=== PATIENT | female | born 1970 | race Caucasian/White ===

== ENCOUNTER 2017-08-23 20:30 | Emergency (ER) | payer SELFPAY ==
[2017-08-23 21:18] LABS: Urine Blood NEGATIVE (NEG); Urine Glucose 2+ (NEG); Urine Protein NEGATIVE (NEG); Urine Specific Gravity 1.015 (1.005-1.030); Urine pH 6.5 (5.0-7.0)
[2017-08-23 22:10] LABS: Absolute Lymphocytes (CBC) 2.2 K/uL (0.7-4.9); Absolute Monocytes 0.5 K/uL (0.1-1.3); Absolute Neutrophil 7.5 K/uL (1.8-8.0); Basophils % 0.7 % (0-1.3); Eosinophils % 1.5 % (0-4.4); Hematocrit 38.7 % (36.0-45.0); Lymphocytes % 20.8 % (15.3-44.8); MCH 29.3 pg (27.0-35.0); MPV 9.3 fL (7.6-11.3); Monocytes % 4.6 % (3.3-12.3); RBC Red Blood Cell Count 4.45 M/uL (3.86-4.86)
[2017-08-23 22:19] LABS: Bicarbonate 26 mEq/L (21-31); Glucose Level 260 mg/dL (65-120); Lipase 28 U/L (22-51); Potassium 3.6 mEq/L (3.6-5.0); Sodium Level 131 mEq/L (135-145)
[2017-08-23 22:20] LABS: Urine Bacteria <20 /HPF (<20); Urine Culture Reflex Order REFLEXED; Urine RBC <5 /HPF (NONE SEEN)
[2017-08-23 22:25] LABS: ALT/SGPT 22 IU/L (10-60); AST/SGOT 16 IU/L (10-42); Albumin 3.3 g/dL (3.2-5.5); Alkaline Phosphatase 72 IU/L (42-121); Amylase Level 44 U/L (28-100); BUN Blood Urea Nitrogen 14 mg/dL (6-20); Bilirubin Direct < 0.1 mg/dL (0-0.2); Bilirubin Total 0.2 mg/dL (0.3-1.2); Protein, Total 6.7 g/dL (6.0-8.3)
--- NOTE | 2017-08-24 01:05 | ER ---
Nurse's Notes [facility] Name: Madisyn Cat Age: 47 yrs Sex: Female : 1970 Arrival Date: 08/23/2017 Time: 20:31 Bed 13 Private MD: Diagnosis: Cystitis, unspecified with hematuria;Other and unspecified ovarian cysts Presentation: 08/23 20:37 Presenting complaint: Patient states: Right flank pain since yesterday with abdominal aj bloating. Patient reports cloudy urine. Transition of care: patient was not received from another setting of care. Onset of symptoms was August 22, 2017. Care prior to arrival: None. 20:37 Method Of Arrival: Ambulatory aj 20:37 Acuity: NIKKI 3 aj 21:00 Initial Sepsis Screen: Does the patient meet any 2 criteria? No. Patient's initial bs1 sepsis screen is negative. Does the patient have a suspected source of infection? No. Patient's initial sepsis screen is negative. Triage Assessment: 20:38 General: Appears in no apparent distress. comfortable, Behavior is calm, cooperative, aj appropriate for age. Pain: Complains of pain in posterior aspect of right lateral abdomen and anterior aspect of right lateral abdomen. Neuro: Level of Consciousness is awake, alert, obeys commands, Oriented to person, place, time, situation, Appropriate for age. Respiratory: Airway is patent Respiratory effort is even, unlabored, Respiratory pattern is regular, symmetrical. GI: Abdomen is obese, Reports. : Reports pain in right flank(s). Derm: Skin is intact, is healthy with good turgor, Skin is pink, warm \T\ dry. normal. 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 - Social history:: Smoking status: Patient/guardian denies using tobacco. - Family history:: not pertinent. - Hospitalizations: : No recent hospitalization is reported. Screenin:59 Abuse screen: Denies threats or abuse. Denies injuries from another. Nutritional bs1 screening: No deficits noted. Tuberculosis screening: No symptoms or risk factors identified. Fall Risk None identified. Assessment: 20:55 General: Appears in no apparent distress. uncomfortable, Behavior is calm, cooperative, bs1 appropriate for age. Pain: Complains of pain in right and left lower abdomen Pain radiates to right flank. Neuro: Level of Consciousness is awake, alert, obeys commands, Oriented to person, place, time, situation, Appropriate for age Community Service Organization Director are equal bilaterally Moves all extremities. Cardiovascular: Denies chest pain, shortness of breath, Heart tones S1 S2 present Capillary refill < 3 seconds Patient's skin is warm and dry. Respiratory: Airway is patent Trachea midline Respiratory effort is even, unlabored, Respiratory pattern is regular, symmetrical, Breath sounds are clear bilaterally. GI: Abdomen is round distended, Bowel sounds present X 4 quads. Abdomen is tender to palpation in right lower quadrant and left lower quadrant Reports bloating, Patient currently denies bloody stool, diarrhea, rectal bleeding. : Urine is cloudy, Reports pain in right flank(s), lower quadrant(s) Denies burning with urination, foul odor. EENT: No deficits noted. No signs and/or symptoms were reported regarding the EENT system. Derm: Skin is intact, Skin is pink, warm \T\ dry. Musculoskeletal: Circulation, motion, and sensation intact. Capillary refill < 3 seconds, Range of motion: intact in all extremities. 22:30 Reassessment: Patient appears in no apparent distress at this time. No changes from bs1 previously documented assessment. Patient and/or family updated on plan of care and expected duration. Pain level reassessed. Patient is alert, oriented x 3, equal unlabored respirations, skin warm/dry/pink. 08/24 00:00 Reassessment: Patient appears in no apparent distress at this time. Patient and/or bs1 family updated on plan of care and expected duration. Pain level reassessed. Patient is alert, oriented x 3, equal unlabored respirations, skin warm/dry/pink. Pending results of scans. No further needs at this time. 00:30 Reassessment: Patient appears in no apparent distress at this time. Patient is alert, bs1 oriented x 3, equal unlabored respirations, skin warm/dry/pink. Patient states symptoms have improved. 01:25 Reassessment: STILL OPERATOR GIN gave nurse verbal order to give macrobid 100mg x1 prior to discharge. bs1 Vital Signs: 08/23 20:38 BP 137 / 72; Pulse 91; Resp 16; Temp 98.0; Pulse Ox 98% on R/A; Weight 86.18 kg; Height aj 5 ft. 2 in. (157.48 cm); 21:56 BP 102 / 67; Pulse 81; Resp 17; Pulse Ox 99% on R/A; mw2 22:45 BP 106 / 58; Pulse 74; Resp 16; Pulse Ox 98% on R/A; bs1 23:45 BP 112 / 69; Pulse 72; Resp 15; Pulse Ox 98% on R/A; Pain 4/10; bs1 08/24 00:45 BP 116 / 77; Pulse 71; Resp 16; Pulse Ox 96% on R/A; Pain 4/10; bs1 01:30 BP 106 / 71; Pulse 72; Resp 16; Temp 97.7(O); Pulse Ox 100% on R/A; Pain 0/10; bs1 08/23 20:38 Body Mass Index 34.75 (86.18 kg, 157.48 cm) aj ED Course: 08/23 20:31 Patient arrived in ED. am2 20:37 Triage completed. aj 20:38 Arm band placed on right wrist. Patient placed in an exam room. aj 20:40 Donna Doty, LYN is Primary Nurse. bs1 20:56 Radha Acosta FNP is PHCP. kav 20:56 Travis Xiong MD is Attending Physician. kav 21:00 Patient has correct armband on for positive identification. Call light in reach. Side bs1 rails up X 1. Pulse ox on. NIBP on. Warm blanket given. 21:51 Inserted saline lock: 20 gauge in right antecubital area, using aseptic technique. mw2 Blood collected. 08/24 00:21 CT completed. Patient tolerated procedure well. Patient moved to CT via wheelchair. Patient moved back from CT. 00:22 CT Abd/Pelvis - Without Cont In Process Unspecified. EDMS 01:35 No provider procedures requiring assistance completed. IV discontinued, bleeding bs1 controlled, No redness/swelling at site. Pressure dressing applied. Administered Medications: 01:30 Drug: Macrobid 100 mg Route: PO; bs1 01:40 Follow up: Response: No adverse reaction bs1 Outcome: 01:04 Discharge ordered by MD. howell 01:36 Discharged to home ambulatory, with significant other. bs1 01:36 Condition: stable 01:36 Discharge instructions given to patient, Instructed on discharge instructions, follow up and referral plans. medication usage, Demonstrated understanding of instructions, follow-up care, medications, Prescriptions given X 2. 01:41 Patient left the ED. bs1 Addendum: 08/27/2017 12:34 Addendum: Culture Results: Positive urine culture. Bacteria is resistant to, has i w intermediate sensitivity, or is not tested against prescribed antibiotics. Report given to ANNETTE for further evaluation and then to sifter operator for follow up with patient. Phone call Attempt #1 pt still having lower abd pain Prescription called-in to pharmacy of choice. Levaquin 500 mg PO daily, X 5 days, #5, no refills, called in to [facility] in [place]. Signatures: Dispatcher [employer] EDSusie Garcia, RN RN Radha Cam, LAY OUT CARPENTER LAY OUT CARPENTER Silvano Melo Irene, RN Susie Hsieh Brittany RN RN bs1 Trista Reese mw2
--- NOTE | 2017-08-24 01:05 | EDPHYS ---
Physician Documentation [facility] Name: Madisyn Cat Age: 47 yrs Sex: Female : 1970 Arrival Date: 08/23/2017 Time: 20:31 Bed 13 Private MD: ED Physician Travis Xiong HPI: 08/23 20:55 This 47 yrs old Female presents to ER via Ambulatory with complaints of Flank kav Pain. 08/24 00:58 The patient complains of pain in the left mid back. The pain does not radiate. Onset: kav The symptoms/episode began/occurred acutely, 2 day(s) ago. Modifying factors: The symptoms are alleviated by nothing. the symptoms are aggravated by nothing. Associated signs and symptoms: The patient has no apparent associated signs or symptoms. Severity of pain: At its worst the pain was moderate just prior to arrival. The patient has not experienced similar symptoms in the past. The patient has not recently seen a physician. 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 - Social history:: Smoking status: Patient/guardian denies using tobacco. - Family history:: not pertinent. - Hospitalizations: : No recent hospitalization is reported. ROS: 08/24 00:59 Constitutional: Negative for fever, chills, and weight loss, Eyes: Negative for injury, kav pain, redness, and discharge, ENT: Negative for injury, pain, and discharge, Neck: Negative for injury, pain, and swelling, Cardiovascular: Negative for chest pain, palpitations, and edema, Respiratory: Negative for shortness of breath, cough, wheezing, and pleuritic chest pain, Abdomen/GI: Negative for abdominal pain, nausea, vomiting, diarrhea, and constipation, Back: Negative for injury and pain, MS/Extremity: Negative for injury and deformity, Skin: Negative for injury, rash, and discoloration, Neuro: Negative for headache, weakness, numbness, tingling, and seizure, Psych: Negative for depression, anxiety, suicide ideation, homicidal ideation, and hallucinations, Allergy/Immunology: Negative for hives, rash, and allergies, Endocrine: Negative for neck swelling, polydipsia, polyuria, polyphagia, and marked weight changes, Hematologic/Lymphatic: Negative for swollen nodes, abnormal bleeding, and unusual bruising. : Positive for urinary symptoms, flank pain, small amounts, Negative for injury or acute deformity, hematuria, pelvic pain, burning with urination, difficulty urinating, bladder incontinence, foul smelling urine, vaginal bleeding, vaginal discharge, vaginal itching. Exam: 00:59 Constitutional: This is a well developed, well nourished patient who is awake, alert, kav and in no acute distress. Head/Face: Normocephalic, atraumatic. Eyes: Pupils equal round and reactive to light, extra-ocular motions intact. Lids and lashes normal. Conjunctiva and sclera are non-icteric and not injected. Cornea within normal limits. Periorbital areas with no swelling, redness, or edema. ENT: Nares patent. No nasal discharge, no septal abnormalities noted. Tympanic membranes are normal and external auditory canals are clear. Oropharynx with no redness, swelling, or masses, exudates, or evidence of obstruction, uvula midline. Mucous membranes moist. Neck: Trachea midline, no thyromegaly or masses palpated, and no cervical lymphadenopathy. Supple, full range of motion without nuchal rigidity, or vertebral point tenderness. No Meningismus. Chest/axilla: Normal chest wall appearance and motion. Nontender with no deformity. No lesions are appreciated. Cardiovascular: Regular rate and rhythm with a normal S1 and S2. No gallops, murmurs, or rubs. Normal PMI, no JVD. No pulse deficits. Respiratory: Lungs have equal breath sounds bilaterally, clear to auscultation and percussion. No rales, rhonchi or wheezes noted. No increased work of breathing, no retractions or nasal flaring. Abdomen/GI: Soft, non-tender, with normal bowel sounds. No distension or tympany. No guarding or rebound. No evidence of tenderness throughout. Back: No spinal tenderness. No costovertebral tenderness. Full range of motion. Skin: Warm, dry with normal turgor. Normal color with no rashes, no lesions, and no evidence of cellulitis. Neuro: Awake and alert, GCS 15, oriented to person, place, time, and situation. Cranial nerves II-XII grossly intact. Motor strength 5/5 in all extremities. Sensory grossly intact. Cerebellar exam normal. Normal gait. Psych: Awake, alert, with orientation to person, place and time. Behavior, mood, and affect are within normal limits. 00:59 : CVA tenderness, that is moderate. Vital Signs: 08/23 20:38 BP 137 / 72; Pulse 91; Resp 16; Temp 98.0; Pulse Ox 98% on R/A; Weight 86.18 kg; Height aj 5 ft. 2 in. (157.48 cm); 21:56 BP 102 / 67; Pulse 81; Resp 17; Pulse Ox 99% on R/A; mw2 22:45 BP 106 / 58; Pulse 74; Resp 16; Pulse Ox 98% on R/A; bs1 23:45 BP 112 / 69; Pulse 72; Resp 15; Pulse Ox 98% on R/A; Pain 4/10; bs1 08/24 00:45 BP 116 / 77; Pulse 71; Resp 16; Pulse Ox 96% on R/A; Pain 4/10; bs1 01:30 BP 106 / 71; Pulse 72; Resp 16; Temp 97.7(O); Pulse Ox 100% on R/A; Pain 0/10; bs1 08/23 20:38 Body Mass Index 34.75 (86.18 kg, 157.48 cm) aj MDM: 00:59 Data reviewed: vital signs, nurses notes, lab test result(s), radiologic studies, CT kav scan. 01:04 Medical screening is not applicable. [facility] 08/23 20:58 Order name: Urine Dipstick--Ancillary (enter results); Complete Time: 23:18 eb 08/23 23:18 Interpretation: Within normal limits: UGLUC 2+; UKET 2+. [facility] 08/23 20:58 Order name: Urine --Ancillary (enter results); Complete Time: 23:18 eb 08/23 23:19 Interpretation: Within normal limits. 08/23 21:34 Order name: Amylase, Serum; Complete Time: 23:18 [facility] 08/23 23:19 Interpretation: Within normal limits. 08/23 21:34 Order name: Basic Metabolic Panel; Complete Time: 23:18 [facility] 08/23 23:18 Interpretation: NA 131; GLUC 260; CA 8.1. 08/23 21:34 Order name: CBC with Diff; Complete Time: 23:18 [facility] 08/23 23:18 Interpretation: MCV 87.0. 08/23 21:34 Order name: Creatinine for Radiology; Complete Time: 23:18 [facility] 08/23 23:19 Interpretation: Within normal limits. 08/23 21:34 Order name: Hepatic Function; Complete Time: 23:18 [facility] 08/23 23:19 Interpretation: BILIT 0.2; A/G 1.0. 08/23 21:34 Order name: Lipase; Complete Time: 23:18 08/23 23:19 Interpretation: Within normal limits. 08/23 21:34 Order name: Urine Microscopic Only; Complete Time: 23:18 [facility] 08/23 23:19 Interpretation: UWBC 5-10; SQEPI 5-10. [facility] 08/23 21:34 Order name: IV Saline Lock; Complete Time: 22:02 08/23 21:34 Order name: Labs collected and sent; Complete Time: 22:02 08/23 22:21 Order name: Urine Culture [facility] 08/23 23:40 Order name: CT Abd/Pelvis - Without Cont [facility] 08/23 21:34 Order name: Urine Dipstick-Ancillary (obtain specimen); Complete Time: 22:02 kav Administered Medications: 01:30 Drug: Macrobid 100 mg Route: PO; bs1 01:40 Follow up: Response: No adverse reaction bs1 Disposition: 06:44 Co-signature as Attending Physician, Travis Xiong MD I agree with the assessment and tony plan of care. Disposition: 08/24/17 01:04 Discharged to Home. Impression: Cystitis, unspecified with hematuria, Other and unspecified ovarian cysts. - Condition is Stable. - Discharge Instructions: Ovarian Cyst, [id number], Urinary Frequency. - Prescriptions for Macrobid 100 mg Oral Capsule - take 1 capsule by ORAL route every 12 hours for 10 days; 20 capsule. Ibuprofen 600 mg Oral Tablet - take 1 tablet by ORAL route every 6 hours As needed take with food; 30 tablet. - Medication Reconciliation Form, Thank You Letter, Antibiotic Education, Prescription Opioid Use, Work release form form. - Follow up: Private Physician; When: 5 - 6 days; Reason: If symptoms return, Recheck today's complaints, Continuance of care, Re-evaluation by your physician. - Problem is new. - Symptoms have improved. Signatures: Dispatcher [employer] Susie Fine, RN RN Travis De Anda MD MD cha Vern, Katherine, FILM DEVELOPING MACHINE OPERATOR FILM DEVELOPING MACHINE OPERATOR Donna Louie, RN RN bs1 Corrections: (The following items were deleted from the chart) 08/23 23:19 23:18 Normal except: UGLUC 2+; UKET 2+. kav kav 08/24 01:41 01:04 08/24/2017 01:04 Discharged to Home. Impression: Cystitis, unspecified with bs1 hematuria; Other and unspecified ovarian cysts. Condition is Stable. Forms are Medication Reconciliation Form, Thank You Letter, Antibiotic Education, Prescription Opioid Use. Follow up: Private Physician; When: 5 - 6 days; Reason: If symptoms return, Recheck today's complaints, Continuance of care, Re-evaluation by your physician. Problem is new. Symptoms have improved. kav
[2017-08-24] MEDS ORDERED: NITROFURAN MACRO 100 MG CAP PO ONE (01:30)
[2017-08-24 02:13] VITALS: BP 106/71; TEMP 97.7; O2SAT 100
--- NOTE | 2017-08-24 08:51 | RAD REPORT ---
EXAM DESCRIPTION: CT - Abdomen Pelvis Wo Contrast - 08/24/2017 6:37 am CLINICAL HISTORY: Abdominal pain /right flank pain surgery 6+ months cholecystectomy COMPARISON: 2016 TECHNIQUE: Computed axial tomography of the abdomen and pelvis was obtained. IV and oral contrast we re not requested. A preliminary report was generated by [employer] and reviewed prior to this dictation All CT scans are performed using dose optimization technique as appropriate and may include automated exposure control or mA/KV adjustment according to patient size. FINDINGS: The evaluation of solid organs, vessels and bowel is limited secondary to the lack of con trast administration. The liver has a diminished attenuation consistent with fatty infiltration. The gallbladder has been r emoved. Spleen, pancreas, adrenals and kidneys appear grossly normal. The appendix is normal. There is no evidence of diverticulitis. The uterus has enlarged since the prior examination measuring 13 centimeters. A 26 millimeter left ov melody cyst is present. A 25 millimeter right ovarian cyst is seen. The bladder is compressed by the u terus. A small right inguinal hernia contains fat IMPRESSION: Enlarged uterus may be secondary to fibroids. MRI would be helpful for further evaluatio n. Small bilateral ovarian cysts
== END 2017-08-24 01:41 | disposition home or self-care (01) ==
LOC: ER 20:30
DX: N30.91 Cystitis, unspecified with hematuria (principal); N83.299 Other ovarian cyst, unspecified side
CPT/HCPCS: 36415; 74176; 80048; 80076; 81003; 81015; 81025; 82150; 83690; 85025; 87077; 87086; 87088; 87186; 99284

== ENCOUNTER 2018-04-07 10:18 | Emergency (ER) | payer SELFPAY ==
--- NOTE | 2018-04-07 11:12 | ER ---
Nurse's Notes [facility] Name: Madisyn Cat Age: 47 yrs Sex: Female : 1970 Arrival Date: 04/07/2018 Time: 10:23 Bed 20 Private MD: None, None Diagnosis: Acute upper respiratory infection, unspecified Presentation: 04/07 10:24 Presenting complaint: Patient states: my son had the flu, and since the day before tw2 yesterday i started feeling like my throat was sore, then yesterday i felt horrible, my throat feels like its on fire and my right ear is killing me. Transition of care: patient was not received from another setting of care. Onset of symptoms was April 07, 2018. Risk Assessment: Do you want to hurt yourself or someone else? Patient reports no desire to harm self or others. Initial Sepsis Screen: Does the patient meet any 2 criteria? No. Patient's initial sepsis screen is negative. Does the patient have a suspected source of infection? No. Patient's initial sepsis screen is negative. Care prior to arrival: None. 10:24 Method Of Arrival: Ambulatory tw2 10:24 Acuity: NIKKI 4 tw2 Triage Assessment: 10:27 General: Appears in no apparent distress. Behavior is calm, cooperative, appropriate tw2 for age. Pain: Complains of pain in throat and right ear. EENT: Reports pain in right ear when swallowing. 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 - Social history:: Smoking status: . - Ebola Screening: : Patient denies travel to an Ebola-affected area in the 21 days before illness onset. Screenin:53 Abuse screen: Denies threats or abuse. Nutritional screening: No deficits noted. la1 Tuberculosis screening: No symptoms or risk factors identified. Fall Risk None identified. Assessment: 10:53 General: Appears in no apparent distress. Behavior is calm, cooperative. Pain: la1 Complains of pain in right ear and throat. Neuro: Level of Consciousness is awake, alert, obeys commands, Oriented to person, place, time, situation. Respiratory: Airway is patent Respiratory effort is even, unlabored, Breath sounds are clear bilaterally. GI: No signs and/or symptoms were reported involving the gastrointestinal system. : No signs and/or symptoms were reported regarding the genitourinary system. EENT: Throat is reddened. Vital Signs: 10:25 BP 126 / 71; Pulse 83; Resp 17; Temp 97.8(O); Pulse Ox 99% on R/A; Pain 5/10; tw2 11:35 BP 122 / 73; Pulse 81; Resp 18; Temp 97.3; Pulse Ox 98% on R/A; la1 ED Course: 10:23 Patient arrived in ED. sb2 10:24 None, None is Private Physician. sb2 10:25 Triage completed. tw2 10:25 Arm band placed on. tw2 10:28 Gen[facility] Flores FNP [facility]. nh 10:28 Benjamin Schwab MD is Attending Physician. nh 10:52 Denys Chris RN is Primary Nurse. la1 10:53 Call light in reach. la1 11:34 No provider procedures requiring assistance completed. Patient did not have IV access la1 during this emergency room visit. Administered Medications: No medications were administered Outcome: 11:12 Discharge ordered by MD. nh 11:34 Discharged to home ambulatory. la1 11:34 Condition: stable 11:34 Discharge instructions given to patient, Instructed on discharge instructions, follow up and referral plans. medication usage, Demonstrated understanding of instructions, follow-up care, medications, Prescriptions given X 1. 11:36 Patient left the ED. la1 Signatures: Gena Flores FNP [facility] Denys Chris RN RN la1 Lilian Bobo RN RN tw2 Alicia Thapa sb2 Corrections: (The following items were deleted from the chart) 10:27 10:26 PMHx: Diabetes - NIDDM; tw2 tw2
--- NOTE | 2018-04-07 11:12 | EDPHYS ---
Physician Documentation [facility] Name: Madisyn Cat Age: 47 yrs Sex: Female : 1970 Arrival Date: 04/07/2018 Time: 10:23 Bed 20 Private MD: None, None ED Physician Benjamin Schwab HPI: 04/07 11:06 This 47 yrs old Female presents to ER via Ambulatory with complaints of Sore nh Throat, Ear Pain. 11:06 The patient presents with sore throat. The patient describes throat pain as burning, nh constant. Onset: The symptoms/episode began/occurred 1 week(s) ago. Severity of symptoms: At their worst the symptoms were moderate, just prior to arrival, in the emergency department the symptoms are unchanged. Modifying factors: The symptoms are alleviated by nothing, the symptoms are aggravated by swallowing. Associated signs and symptoms: Pertinent positives: cough, earache, fever, flu-like symptoms. The patient has not experienced similar symptoms in the past. The patient has not recently seen a physician. 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 - Social history:: Smoking status: . - Ebola Screening: : Patient denies travel to an Ebola-affected area in the 21 days before illness onset. ROS: 11:06 Eyes: Negative for injury, pain, redness, and discharge, Neck: Negative for injury, nh pain, and swelling, Cardiovascular: Negative for chest pain, palpitations, and edema, Abdomen/GI: Negative for abdominal pain, nausea, vomiting, diarrhea, and constipation, Back: Negative for injury and pain, : Negative for injury, bleeding, discharge, and swelling, MS/Extremity: Negative for injury and deformity, Skin: Negative for injury, rash, and discoloration, Neuro: Negative for headache, weakness, numbness, tingling, and seizure, Psych: Negative for depression, anxiety, suicide ideation, homicidal ideation, and hallucinations, Allergy/Immunology: Negative for hives, rash, and allergies, Endocrine: Negative for neck swelling, polydipsia, polyuria, polyphagia, and marked weight changes, Hematologic/Lymphatic: Negative for swollen nodes, abnormal bleeding, and unusual bruising. 11:06 Constitutional: Positive for fatigue, fever. 11: ENT: Positive for sore throat. 11: Respiratory: Positive for cough. Exam: 11:06 Constitutional: This is a well developed, well nourished patient who is awake, alert, nh and in no acute distress. Head/Face: Normocephalic, atraumatic. Eyes: Pupils equal round and reactive to light, extra-ocular motions intact. Lids and lashes normal. Conjunctiva and sclera are non-icteric and not injected. Cornea within normal limits. Periorbital areas with no swelling, redness, or edema. ENT: Nares patent. No nasal discharge, no septal abnormalities noted. Tympanic membranes are normal and external auditory canals are clear. Oropharynx with no redness, swelling, or masses, exudates, or evidence of obstruction, uvula midline. Mucous membranes moist. Neck: Trachea midline, no thyromegaly or masses palpated, and no cervical lymphadenopathy. Supple, full range of motion without nuchal rigidity, or vertebral point tenderness. No Meningismus. Chest/axilla: Normal chest wall appearance and motion. Nontender with no deformity. No lesions are appreciated. Cardiovascular: Regular rate and rhythm with a normal S1 and S2. No gallops, murmurs, or rubs. Normal PMI, no JVD. No pulse deficits. Respiratory: Lungs have equal breath sounds bilaterally, clear to auscultation and percussion. No rales, rhonchi or wheezes noted. No increased work of breathing, no retractions or nasal flaring. Abdomen/GI: Soft, non-tender, with normal bowel sounds. No distension or tympany. No guarding or rebound. No evidence of tenderness throughout. Back: No spinal tenderness. No costovertebral tenderness. Full range of motion. Skin: Warm, dry with normal turgor. Normal color with no rashes, no lesions, and no evidence of cellulitis. MS/ Extremity: Pulses equal, no cyanosis. Neurovascular intact. Full, normal range of motion. Neuro: Awake and alert, GCS 15, oriented to person, place, time, and situation. Cranial nerves II-XII grossly intact. Motor strength 5/5 in all extremities. Sensory grossly intact. Cerebellar exam normal. Normal gait. Psych: Awake, alert, with orientation to person, place and time. Behavior, mood, and affect are within normal limits. Vital Signs: 10:25 BP 126 / 71; Pulse 83; Resp 17; Temp 97.8(O); Pulse Ox 99% on R/A; Pain 5/10; tw2 11:35 BP 122 / 73; Pulse 81; Resp 18; Temp 97.3; Pulse Ox 98% on R/A; la1 MDM: 10:28 Patient medically screened. fl 11:06 Data reviewed: vital signs, nurses notes, lab test result(s), I have discussed the fl patient's presentation/case with the attending Emergency Department Physician; and as a result, I will discharge patient. Counseling: I had a detailed discussion with the patient and/or guardian regarding: the historical points, exam findings, and any diagnostic results supporting the discharge/admit diagnosis, the need for outpatient follow up, to return to the emergency department if symptoms worsen or persist or if there are any questions or concerns that arise at home. 04/07 10:36 Order name: Flu; Complete Time: 11:05 fl Administered Medications: No medications were administered Disposition: 11:46 Co-signature as Attending Physician, Benjamin Schwab MD. rn Disposition: 04/07/18 11:12 Discharged to Home. Impression: Acute upper respiratory infection, unspecified. - Condition is Stable. - Discharge Instructions: Upper Respiratory Infection, Adult. - Prescriptions for Zithromax Z- Walter 250 mg Oral Tablet - take 1 tablet by ORAL route as directed for 5 days Day 1 - take two (2) tablets one time. Day 2, 3, 4 , 5 take one (1) tablet once daily.; 6 tablet. - Medication Reconciliation Form, Thank You Letter, Antibiotic Education, Prescription Opioid Use form. - Follow up: Private Physician; When: 2 - 3 days; Reason: Recheck today's complaints. - Problem is new. - Symptoms are unchanged. Signatures: Dispatcher [employer] EDMS Gena Flores, VIBRATING SCREEN OPERATOR VIBRATING SCREEN OPERATOR fl Benjamin Schwab MD MD rn Attema, Lee, RN RN la1 Lilian Bobo RN RN tw2 Corrections: (The following items were deleted from the chart) 10:27 10:26 PMHx: Diabetes - NIDDM; tw2 tw2 11:36 11:12 04/07/2018 11:12 Discharged to Home. Impression: Acute upper respiratory la1 infection, unspecified. Condition is Stable. Forms are Medication Reconciliation Form, Thank You Letter, Antibiotic Education, Prescription Opioid Use. Follow up: Private Physician; When: 2 - 3 days; Reason: Recheck today's complaints. Problem is new. Symptoms are unchanged. nh
[2018-04-07 11:49] VITALS: BP 122/73; TEMP 97.3; O2SAT 98
== END 2018-04-07 11:36 | disposition home or self-care (01) ==
LOC: ER 10:18
DX: J06.9 Acute upper respiratory infection, unspecified (principal); E11.9 Type 2 diabetes mellitus without complications; Z79.4 Long term (current) use of insulin
CPT/HCPCS: 87804; 99282

== ENCOUNTER 2018-06-25 21:55 | Emergency (ER) | payer SELFPAY ==
[2018-06-25] MEDS ORDERED: METHYLPREDNISOLONE 125 MG INJ ONE (23:27)
--- NOTE | 2018-06-25 23:30 | EDPHYS ---
Physician Documentation [facility] Name: Madisyn Cat Age: 48 yrs Sex: Female : 1970 Arrival Date: 06/25/2018 Time: 21:57 Bed 24 Private MD: ED Physician Robbin Rea HPI: 06/26 04:36 This 48 yrs old Female presents to ER via Ambulatory with complaints of Rash. tw4 04:36 The patient's rash thought to be caused by Contact allergy. The rash is located on the tw4 abdomen and right leg. Onset: The symptoms/episode began/occurred yesterday. Associated signs and symptoms: Pertinent positives: None. The patient has not experienced similar symptoms in the past. 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 - Social history:: Smoking status: Patient/guardian denies using tobacco. - Ebola Screening: : No symptoms or risks identified at this time. ROS: 06/26 04:36 Constitutional: Negative for fever, chills, and weight loss, Eyes: Negative for injury, tw4 pain, redness, and discharge, Cardiovascular: Negative for chest pain, palpitations, and edema, Respiratory: Negative for shortness of breath, cough, wheezing, and pleuritic chest pain, Abdomen/GI: Negative for abdominal pain, nausea, vomiting, diarrhea, and constipation, Back: Negative for injury and pain, MS/Extremity: Negative for injury and deformity. Skin: Positive for rash, Negative for abrasions, abscesses, avulsion, discoloration, ecchymosis, erythema, hematoma, jaundice. Exam: 04:36 Constitutional: This is a well developed, well nourished patient who is awake, alert, tw4 and in no acute distress. Head/Face: Normocephalic, atraumatic. Chest/axilla: Normal chest wall appearance and motion. Nontender with no deformity. No lesions are appreciated. Cardiovascular: Regular rate and rhythm with a normal S1 and S2. No gallops, murmurs, or rubs. Normal PMI, no JVD. No pulse deficits. Respiratory: Lungs have equal breath sounds bilaterally, clear to auscultation and percussion. No rales, rhonchi or wheezes noted. No increased work of breathing, no retractions or nasal flaring. Abdomen/GI: Soft, non-tender, with normal bowel sounds. No distension or tympany. No guarding or rebound. No evidence of tenderness throughout. Back: No spinal tenderness. No costovertebral tenderness. Full range of motion. MS/ Extremity: Pulses equal, no cyanosis. Neurovascular intact. Full, normal range of motion. 04:36 Skin: Vital Signs: 06/25 22:16 BP 125 / 71; Pulse 73; Resp 18; Temp 98.5(O); Pulse Ox 100% on R/A; Weight 84.37 kg lp1 (R); Height 5 ft. 1 in. (154.94 cm); Pain 7/10; 22:16 Body Mass Index 35.14 (84.37 kg, 154.94 cm) lp1 MDM: 22:32 Patient medically screened. tw4 06/26 04:36 Differential diagnosis: impetigo, allergic reaction. Data reviewed: vital signs, nurses tw4 notes. Counseling: I had a detailed discussion with the patient and/or guardian regarding: the historical points, exam findings, and any diagnostic results supporting the discharge/admit diagnosis. Special discussion: I discussed with the patient/guardian in detail that at this point there is no indication for admission to the hospital. It is understood, however, that if the symptoms persist or worsen the patient needs to return immediately for re-evaluation. Administered Medications: 06/25 23:21 Drug: SOLU-Medrol 125 mg Route: IM; Site: left gluteus; mg2 23:36 Follow up: Response: No adverse reaction; Medication administered at discharge. mg2 Disposition: 06/25/18 23:29 Discharged to Home. Impression: Dermatitis, unspecified. - Condition is Stable. - Discharge Instructions: Poison Deanna Dermatitis, Rash, [id number], Contact Dermatitis, [id number]. - Prescriptions for Loratadine 10 mg Oral Tablet - take 1 Tablet by ORAL route once daily; 14 Tablet. Medrol (Walter) 4 mg Oral Tablets, Dose Pack - take 1 tablet by ORAL route as directed - follow package instructions; 1 packet. - Medication Reconciliation Form, Thank You Letter, Antibiotic Education, Prescription Opioid Use form. - Follow up: Private Physician; When: Upon discharge from the Emergency Department; Reason: If symptoms return, Recheck today's complaints, Continuance of care. - Problem is new. - Symptoms have improved. Signatures: Margy Bernal RN RN lp1 Robbin Rea MD MD tw4 Jhonathan Reynoso RN RN mg2 Corrections: (The following items were deleted from the chart) 23:37 23:29 06/25/2018 23:29 Discharged to Home. Impression: Dermatitis, unspecified. mg2 Condition is Stable. Forms are Medication Reconciliation Form, Thank You Letter, Antibiotic Education, Prescription Opioid Use. Follow up: Private Physician; When: Upon discharge from the Emergency Department; Reason: If symptoms return, Recheck today's complaints, Continuance of care. Problem is new. Symptoms have improved. tw4
--- NOTE | 2018-06-25 23:30 | ER ---
Nurse's Notes [facility] Name: Madisyn Cat Age: 48 yrs Sex: Female : 1970 Arrival Date: 06/25/2018 Time: 21:57 Bed 24 Private MD: Diagnosis: Dermatitis, unspecified Presentation: 06/25 22:13 Presenting complaint: Patient states: Was outside about a week ago, may have came in lp1 contact with poison anam; Has worsened, spread from lower legs to groin area and arms. Transition of care: patient was not received from another setting of care. Onset of symptoms was June 25, 2018. Risk Assessment: Do you want to hurt yourself or someone else? Patient reports no desire to harm self or others. Initial Sepsis Screen: Does the patient meet any 2 criteria? No. Patient's initial sepsis screen is negative. Does the patient have a suspected source of infection? No. Patient's initial sepsis screen is negative. Care prior to arrival: None. 22:13 Method Of Arrival: Ambulatory lp1 22:13 Acuity: NIKKI 4 lp1 Triage Assessment: 23:30 General: Appears in no apparent distress. comfortable, Behavior is calm, cooperative. 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 - Social history:: Smoking status: Patient/guardian denies using tobacco. - Ebola Screening: : No symptoms or risks identified at this time. Screenin:22 Abuse screen: Denies threats or abuse. Denies injuries from another. Nutritional mg2 screening: No deficits noted. Tuberculosis screening: No symptoms or risk factors identified. Fall Risk None identified. Assessment: 23:29 Pain: Complains of pain in chest, abdomen, pelvis, right leg and left leg. Derm: Rash mg2 noted that is macular, itchy, red, raised, on chest, abdomen, pelvis, right leg and left leg. Vital Signs: 22:16 BP 125 / 71; Pulse 73; Resp 18; Temp 98.5(O); Pulse Ox 100% on R/A; Weight 84.37 kg lp1 (R); Height 5 ft. 1 in. (154.94 cm); Pain 7/10; 22:16 Body Mass Index 35.14 (84.37 kg, 154.94 cm) lp1 ED Course: 21:57 Patient arrived in ED. am2 22:15 Triage completed. lp1 22:15 Arm band placed on right wrist. lp1 22:22 Jhonathan Reynoso, RN is Primary Nurse. mg2 22:32 Robbin Rea MD is Attending Physician. tw4 23:30 Patient has correct armband on for positive identification. Pulse ox on. NIBP on. mg2 23:30 No provider procedures requiring assistance completed. Patient did not have IV access mg2 during this emergency room visit. Administered Medications: 23:21 Drug: SOLU-Medrol 125 mg Route: IM; Site: left gluteus; mg2 23:36 Follow up: Response: No adverse reaction; Medication administered at discharge. mg2 Outcome: 23:29 Discharge ordered by . tw4 23:37 Discharged to home ambulatory. mg2 23:37 Condition: stable 23:37 Discharge instructions given to patient, Instructed on discharge instructions, follow up and referral plans. medication usage, Demonstrated understanding of instructions, follow-up care, medications, Prescriptions given X 1. 23:37 Patient left the ED. mg2 Signatures: Margy Bernal RN RN lp1 Susie Atwood am2 Robbin Rea MD MD tw4 Jhonathan Reynoso, LYN RN mg2
[2018-06-25 23:49] VITALS: BP 125/71; TEMP 98.5; O2SAT 100
== END 2018-06-25 23:37 | disposition home or self-care (01) ==
LOC: ER 21:55
DX: L30.9 Dermatitis, unspecified (principal); E11.9 Type 2 diabetes mellitus without complications
CPT/HCPCS: 96372; 99283; J2930

== ENCOUNTER 2019-01-20 17:17 | Emergency (ER) | payer SELFPAY ==
[2019-01-20] MEDS ORDERED: METHYLPREDNISOLONE 125 MG INJ ONE (18:00)
--- NOTE | 2019-01-20 18:00 | EDPHYS ---
Physician Documentation [facility] Name: Madisyn Cat Age: 48 yrs Sex: Female : 1970 Arrival Date: 01/20/2019 Time: 17:19 Bed 20 Private MD: ED Physician Lex Vazquez HPI: 01/20 17:55 This 48 yrs old Female presents to ER via Ambulatory with complaints of Rash. jr8 17:55 The patient's rash thought to be caused by Dermatitis. The rash is located on the jr8 pelvis, right hand, left hand and right arm. Associated signs and symptoms: Pertinent positives: itching. Severity of symptoms: At their worst the symptoms were mild in the emergency department the symptoms are unchanged. Pt was working in the yard about a week ago and got an itchy rash, is spreading and not resolving with OTC tx. Historical: - Allergies: 17:35 No Known Allergies; ss - Home Meds: 17:35 Levemir 15 units subcutaneous soln daily [Active]; metformin 1,000 mg Oral tr24 1 tab ss twice a day [Active]; - PMHx: 17:35 Diabetes - IDDM; ss - Immunization history:: Adult Immunizations up to date. - Social history:: Smoking status: Patient/guardian denies using tobacco. - Ebola Screening: : No symptoms or risks identified at this time. ROS: 17:55 Constitutional: Negative for fever, chills, and weight loss, Eyes: Negative for injury, jr8 pain, redness, and discharge, ENT: Negative for injury, pain, and discharge, Neck: Negative for injury, pain, and swelling, Cardiovascular: Negative for chest pain, palpitations, and edema, Respiratory: Negative for shortness of breath, cough, wheezing, and pleuritic chest pain, Abdomen/GI: Negative for abdominal pain, nausea, vomiting, diarrhea, and constipation, Back: Negative for injury and pain, MS/Extremity: Negative for injury and deformity. 17:55 Skin: Positive for rash. Exam: 17:56 Constitutional: This is a well developed, well nourished patient who is awake, alert, jr8 and in no acute distress. Head/Face: Normocephalic, atraumatic. Eyes: Pupils equal round and reactive to light, extra-ocular motions intact. Lids and lashes normal. Conjunctiva and sclera are non-icteric and not injected. Cornea within normal limits. Periorbital areas with no swelling, redness, or edema. ENT: Nares patent. No nasal discharge, no septal abnormalities noted. Tympanic membranes are normal and external auditory canals are clear. Oropharynx with no redness, swelling, or masses, exudates, or evidence of obstruction, uvula midline. Mucous membranes moist. Neck: Trachea midline, no thyromegaly or masses palpated, and no cervical lymphadenopathy. Supple, full range of motion without nuchal rigidity, or vertebral point tenderness. No Meningismus. Chest/axilla: Normal chest wall appearance and motion. Nontender with no deformity. No lesions are appreciated. Cardiovascular: Regular rate and rhythm with a normal S1 and S2. No gallops, murmurs, or rubs. Normal PMI, no JVD. No pulse deficits. Respiratory: Lungs have equal breath sounds bilaterally, clear to auscultation and percussion. No rales, rhonchi or wheezes noted. No increased work of breathing, no retractions or nasal flaring. Abdomen/GI: Soft, non-tender, with normal bowel sounds. No distension or tympany. No guarding or rebound. No evidence of tenderness throughout. 17:56 Skin: rash a mild rash is noted, rash can be described as papular, raised, urticarial, vesicular, contact dermatitis. Vital Signs: 17:35 BP 121 / 68; Pulse 80; Resp 16; Temp 98.1; Pulse Ox 100% ; Weight 83.01 kg; Height 5 ss ft. 2 in. (157.48 cm); 17:35 Body Mass Index 33.47 (83.01 kg, 157.48 cm) ss MDM: 17:38 Patient medically screened. jr8 17:57 Data reviewed: vital signs, nurses notes. Data interpreted: Pulse oximetry: on room air jr8 is 100 %. Interpretation: normal. Counseling: I had a detailed discussion with the patient and/or guardian regarding: the historical points, exam findings, and any diagnostic results supporting the discharge/admit diagnosis, the need for outpatient follow up, a family practitioner. ED course: Discussed need for close monitoring of BGL while on the steroids and need for outpatient FU with PCP. Pt verbalizes understanding and has supplies at home for monitoring. . Administered Medications: 18:00 Drug: SOLU-Medrol 125 mg Route: IM; Site: right ventrogluteal; sg Disposition: 20:01 Co-signature as Attending Physician, Lex Vazquez MD I agree with the assessment ma2 and plan of care. Disposition: 01/20/19 17:59 Discharged to Home. Impression: Allergic contact dermatitis due to plants, except food. - Condition is Stable. - Discharge Instructions: Poison Deanna Dermatitis, Contact Dermatitis, [id number]. - Prescriptions for Medrol (Walter) 4 mg Oral Tablets, Dose Pack - take 1 tablet by ORAL route as directed - follow package instructions; 1 packet. - Medication Reconciliation Form, Thank You Letter form. - Follow up: Private Physician; When: 2 - 3 days; Reason: Recheck today's complaints, Re-evaluation by your physician. - Problem is new. - Symptoms are unchanged. Signatures: Kane Dolan RN RN sg Smirch, Shelby, RN RN ss Roszak, Josh, PA PA jr8 Lex Vazquez MD MD ma2 Corrections: (The following items were deleted from the chart) 18:13 17:59 01/20/2019 17:59 Discharged to Home. Impression: Allergic contact dermatitis due sg to plants, except food. Condition is Stable. Forms are Medication Reconciliation Form, Thank You Letter, Antibiotic Education, Prescription Opioid Use. Follow up: Private Physician; When: 2 - 3 days; Reason: Recheck today's complaints, Re-evaluation by your physician. Problem is new. Symptoms are unchanged. jr8
--- NOTE | 2019-01-20 18:00 | ER ---
Nurse's Notes [facility] Name: Madisyn Cat Age: 48 yrs Sex: Female : 1970 Arrival Date: 01/20/2019 Time: 17:19 Bed 20 Private MD: Diagnosis: Allergic contact dermatitis due to plants, except food Presentation: 01/20 17:33 Presenting complaint: Patient states: POISON SIMON x8 DAYS. Transition of care: patient ss was not received from another setting of care. Onset of symptoms is unknown. Risk Assessment: Do you want to hurt yourself or someone else? Patient reports no desire to harm self or others. Initial Sepsis Screen: Does the patient meet any 2 criteria? No. Patient's initial sepsis screen is negative. Does the patient have a suspected source of infection? No. Patient's initial sepsis screen is negative. Care prior to arrival: None. 17:33 Method Of Arrival: Ambulatory ss 17:33 Acuity: NIKKI 4 ss Historical: - Allergies: 17:35 No Known Allergies; ss - Home Meds: 17:35 Levemir 15 units subcutaneous soln daily [Active]; metformin 1,000 mg Oral tr24 1 tab ss twice a day [Active]; - PMHx: 17:35 Diabetes - IDDM; ss - Immunization history:: Adult Immunizations up to date. - Social history:: Smoking status: Patient/guardian denies using tobacco. - Ebola Screening: : No symptoms or risks identified at this time. Vital Signs: 17:35 BP 121 / 68; Pulse 80; Resp 16; Temp 98.1; Pulse Ox 100% ; Weight 83.01 kg; Height 5 ss ft. 2 in. (157.48 cm); 17:35 Body Mass Index 33.47 (83.01 kg, 157.48 cm) ss ED Course: 17:19 Patient arrived in ED. as 17:34 Triage completed. ss 17:35 Arm band placed on. ss 17:38 Nato Starr PA is PHCP. jr8 17:38 Lex Vazquez MD is Attending Physician. jr8 17:58 Kane Dolan RN is Primary Nurse. sg Administered Medications: 18:00 Drug: SOLU-Medrol 125 mg Route: IM; Site: right ventrogluteal; sg Outcome: 17:59 Discharge ordered by MD. hurtado 18:13 Patient left the ED. sg Signatures: Kane Dolan RN RN sg Martinez, Amelia as Smirch, Shelby, RN RN ss Roszak, Josh, PA PA jrElaina
[2019-01-20 18:23] VITALS: BP 121/68; TEMP 98.1; O2SAT 100
== END 2019-01-20 18:13 | disposition home or self-care (01) ==
LOC: ER 17:17
DX: L23.7 Allergic contact dermatitis due to plants, except food (principal); E11.9 Type 2 diabetes mellitus without complications
CPT/HCPCS: 96372; 99282; J2930

== ENCOUNTER 2019-04-29 14:25 | Emergency (ER) | payer SELFPAY ==
[2019-04-29 16:01] LABS: Urine Bacteria <20 /HPF (<20); Urine Culture Reflex Order NOT NEEDED; Urine RBC <5 /HPF (NONE SEEN)
--- NOTE | 2019-04-29 16:20 | EDPHYS ---
Physician Documentation [facility] Name: Madisyn Cat Age: 48 yrs Sex: Female : 1970 Arrival Date: 04/29/2019 Time: 14:27 Bed 18 Private MD: ED Physician Benjamin Schwab HPI: 04/29 15:38 This 48 yrs old Female presents to ER via Ambulatory with complaints of snw Dizziness, Numbness Of Arm. 15:38 The patient presents with lightheadedness. Onset: The symptoms/episode began/occurred 2 snw day(s) ago, and became persistent. Context: occurred at home, just prior to the episode the patient experienced ran out of metformin, pt continues her levemir. Modifying factors: The symptoms are alleviated by nothing. Associated signs and symptoms: The patient has no apparent associated signs or symptoms. Severity of symptoms: At their worst the symptoms were moderate in the emergency department the symptoms are unchanged. Patient's baseline: Neuro: alert and fully oriented, Motor: no deficits, Ambulation: walks without assistance, Speech: normal. It is unknown whether or not the patient has had similar symptoms in the past. It is unknown whether or not the patient has recently seen a physician, usually sees the [facility]. Historical: - Allergies: 14:32 No Known Allergies; sv - PMHx: 14:32 Diabetes - IDDM; sv ROS: 15:34 Eyes: Negative for injury, pain, redness, and discharge, ENT: Negative for injury, snw pain, and discharge, Neck: Negative for injury, pain, and swelling, Cardiovascular: Negative for chest pain, palpitations, and edema, Respiratory: Negative for shortness of breath, cough, wheezing, and pleuritic chest pain, Abdomen/GI: Negative for abdominal pain, nausea, vomiting, diarrhea, and constipation, Back: Negative for injury and pain, : Negative for injury, bleeding, discharge, and swelling. 15:34 Neuro: Negative for headache, weakness, numbness, tingling, and seizure, Psych: Negative for depression, anxiety, suicide ideation, homicidal ideation, and hallucinations, Allergy/Immunology: Negative for hives, rash, and allergies. 15:34 Constitutional: Positive for lightheadedness. 15:34 MS/extremity: Positive for paresthesias, of the right arm and left arm. 15:34 Skin: Positive for rash. Exam: 15:27 Constitutional: This is a well developed, well nourished patient who is awake, alert, snw and in no acute distress. Head/Face: Normocephalic, atraumatic. Eyes: Pupils equal round and reactive to light, extra-ocular motions intact. Lids and lashes normal. Conjunctiva and sclera are non-icteric and not injected. Cornea within normal limits. Periorbital areas with no swelling, redness, or edema. ENT: Nares patent. No nasal discharge, no septal abnormalities noted. Tympanic membranes are normal and external auditory canals are clear. Oropharynx with no redness, swelling, or masses, exudates, or evidence of obstruction, uvula midline. Mucous membranes moist. Neck: Trachea midline, no thyromegaly or masses palpated, and no cervical lymphadenopathy. Supple, full range of motion without nuchal rigidity, or vertebral point tenderness. No Meningismus. Chest/axilla: Normal chest wall appearance and motion. Nontender with no deformity. No lesions are appreciated. Cardiovascular: Regular rate and rhythm with a normal S1 and S2. No gallops, murmurs, or rubs. Normal PMI, no JVD. No pulse deficits. Respiratory: Lungs have equal breath sounds bilaterally, clear to auscultation and percussion. No rales, rhonchi or wheezes noted. No increased work of breathing, no retractions or nasal flaring. Abdomen/GI: Soft, non-tender, with normal bowel sounds. No distension or tympany. No guarding or rebound. No evidence of tenderness throughout. Back: No spinal tenderness. No costovertebral tenderness. Full range of motion. MS/ Extremity: Pulses equal, no cyanosis. Neurovascular intact. Full, normal range of motion. Neuro: Awake and alert, GCS 15, oriented to person, place, time, and situation. Cranial nerves II-XII grossly intact. Motor strength 5/5 in all extremities. Sensory grossly intact. Cerebellar exam normal. Normal gait. Psych: Awake, alert, with orientation to person, place and time. Behavior, mood, and affect are within normal limits. 15:27 Skin: Appearance: normal except for affected area, candidal, on the axillas and groin. Vital Signs: 14:32 BP 124 / 74; Pulse 76; Resp 16; Temp 98; Pulse Ox 99% ; Weight 79.38 kg; Height 5 ft. 2 sv in. (157.48 cm); 16:30 BP 122 / 70; Pulse 72; Resp 16; Temp 98.1; Pulse Ox 100% on R/A; sg 14:32 Body Mass Index 32.01 (79.38 kg, 157.48 cm) sv MDM: 15:17 Patient medically screened. snw 16:17 Data reviewed: vital signs, nurses notes, lab test result(s). Data interpreted: Pulse snw oximetry: on room air is 99 %. Interpretation: normal. Counseling: I had a detailed discussion with the patient and/or guardian regarding: the historical points, exam findings, and any diagnostic results supporting the discharge/admit diagnosis, lab results, the need for outpatient follow up, to return to the emergency department if symptoms worsen or persist or if there are any questions or concerns that arise at home. Response to treatment: There is no appreciated change of the patient's symptoms at this time. Special discussion: Based on the history and exam findings, there is no indication for further emergent testing or inpatient evaluation. I discussed with the patient/guardian the need to see the primary care provider for further evaluation of the symptoms. Medical screen evaluation completed. EMTALA emergency medical condition absent. 04/29 15:13 Order name: Urine Culture snw 04/29 15:13 Order name: Urine Microscopic Only; Complete Time: 16:12 snw 04/29 16:01 Order name: Urine Dipstick--Ancillary (enter results) bd 04/29 16:01 Order name: Urine --Ancillary (enter results) bd 04/29 16:11 Order name: Glucose, Ancillary Testing; Complete Time: 16:12 EDMS 04/29 15:13 Order name: FSBS; Complete Time: 15:59 snw 04/29 15:13 Order name: Urine Dipstick-Ancillary (obtain specimen); Complete Time: 16:28 snw Administered Medications: 16:32 Drug: DiFLUcan 200 mg Route: PO; sg Disposition: 17:17 Co-signature as Attending Physician, Benjamin Schwab MD. rn Disposition: 04/29/19 16:19 Discharged to Home. Impression: Malaise and fatigue, Paresthesia of skin, Hyperglycemia, unspecified, Patient's intentional underdosing of medication regimen - out of Metformin for months . - Condition is Stable. - Discharge Instructions: Diabetes and Sick Day Management, Hyperglycemia, Paresthesia, Fatigue, Peripheral Neuropathy, Blood Glucose Monitoring, Adult, Skin Yeast Infection. - Prescriptions for Glucophage 500 mg Oral Tablet - take 1 tablet by ORAL route every 12 hours; 20 tablet. Levemir FlexTouch - inject 15 unit by SUBCUTANEOUS route once daily; 1 Cartridge. - Work release form, Medication Reconciliation Form, Thank You Letter, Antibiotic Education, Prescription Opioid Use form. - Follow up: Emergency Department; When: As needed; Reason: Worsening of condition. Follow up: Private Physician; When: 1 - 2 days; Reason: Recheck today's complaints, Continuance of care, Re-evaluation by your physician. Signatures: Dispatcher [employer] [facility] Nel Watkins RN RN sv Gay, Steven, RN RN sg Kate Osullivan, HYDRO STATION OPERATOR-C HYDRO STATION OPERATOR-Csnw Benjamin Schwab MD MD international marketing intern: (The following items were deleted from the chart) 16:20 16:19 04/29/2019 16:19 Discharged to Home. Impression: Malaise and fatigue; Paresthesia snw of skin; Hyperglycemia, unspecified. Condition is Stable. Forms are Medication Reconciliation Form, Thank You Letter, Antibiotic Education, Prescription Opioid Use. Follow up: Emergency Department; When: As needed; Reason: Worsening of condition. Follow up: Private Physician; When: 1 - 2 days; Reason: Recheck today's complaints, Continuance of care, Re-evaluation by your physician. snw 16:23 15:16 Urine Culture+BA.LAB.BRZ ordered. [facility] 16:41 16:20 04/29/2019 16:19 Discharged to Home. Impression: Malaise and fatigue; Paresthesia sg of skin; Hyperglycemia, unspecified; Patient's intentional underdosing of medication regimen - out of Metformin for months . Condition is Stable. Forms are Medication Reconciliation Form, Thank You Letter, Antibiotic Education, Prescription Opioid Use. Follow up: Emergency Department; When: As needed; Reason: Worsening of condition. Follow up: Private Physician; When: 1 - 2 days; Reason: Recheck today's complaints, Continuance of care, Re-evaluation by your physician. snw
--- NOTE | 2019-04-29 16:20 | ER ---
Nurse's Notes [facility] Name: Madisyn Cat Age: 48 yrs Sex: Female : 1970 Arrival Date: 04/29/2019 Time: 14:27 Bed 18 Private MD: Diagnosis: Malaise and fatigue;Paresthesia of skin;Hyperglycemia, unspecified;Patient's intentional underdosing of medication regimen-out of Metformin for months Presentation: 04/29 14:31 Presenting complaint: Patient states: lightheaded x2 days, right arm tingling started sv today around 0800. Has been out of her DM medications since March. Transition of care: patient was not received from another setting of care. Onset of symptoms was April 29, 2019. Care prior to arrival: None. 14:31 Method Of Arrival: Ambulatory sv 14:31 Acuity: NIKKI 3 sv Historical: - Allergies: 14:32 No Known Allergies; sv - PMHx: 14:32 Diabetes - IDDM; sv Screenin:50 Abuse screen: Denies threats or abuse. Denies injuries from another. Nutritional sg screening: No deficits noted. Tuberculosis screening: No symptoms or risk factors identified. Never had TB. Fall Risk None identified. Assessment: 14:50 Reassessment: Patient appears in no apparent distress at this time. pt requesting sg assistance to make the television in the exam room work at this time, pt assisted. 15:00 General: Appears in no apparent distress. well groomed, well developed, well nourished, sg Behavior is calm, cooperative, appropriate for age. Pain: Denies pain. Neuro: Level of Consciousness is awake, alert, obeys commands, Oriented to person, place, time, Product Development Scientist are equal bilaterally Moves all extremities. Speech is normal, Facial symmetry appears normal, Reports numbness in right arm and left arm is intermittent. Neuro: Reports dizziness. Cardiovascular: Capillary refill is brisk in bilateral fingers Patient's skin is warm and dry. Chest pain is denied. Respiratory: Airway is patent Respiratory effort is even, unlabored, Respiratory pattern is regular, symmetrical. GI: Abdomen is round non-distended, Reports tolerance of fluids, tolerance of food. : No signs and/or symptoms were reported regarding the genitourinary system. EENT: No signs and/or symptoms were reported regarding the EENT system. Derm: Skin is pink, warm \T\ dry. Musculoskeletal: Circulation, motion, and sensation intact. Range of motion: intact in all extremities. Vital Signs: 14:32 BP 124 / 74; Pulse 76; Resp 16; Temp 98; Pulse Ox 99% ; Weight 79.38 kg; Height 5 ft. 2 sv in. (157.48 cm); 16:30 BP 122 / 70; Pulse 72; Resp 16; Temp 98.1; Pulse Ox 100% on R/A; sg 14:32 Body Mass Index 32.01 (79.38 kg, 157.48 cm) sv ED Course: 14:27 Patient arrived in ED. mr 14:32 Triage completed. sv 14:32 Arm band placed on. sv 14:50 Kane Dolan, RN is Primary Nurse. sg 15:12 Kate Osullivan FNP-C is PHCP. snw 15:12 Benjamin Schwab MD is Attending Physician. snw 15:59 Urine Microscopic Only Sent. kj1 16:30 Patient has correct armband on for positive identification. Bed in low position. Call sg light in reach. Side rails up X2. Pulse ox on. NIBP on. Warm blanket given. Head of bed elevated. 16:34 No provider procedures requiring assistance completed. Patient did not have IV access sg during this emergency room visit. Administered Medications: 16:32 Drug: DiFLUcan 200 mg Route: PO; sg Outcome: 16:19 Discharge ordered by . snw 16:34 Discharged to home ambulatory, with family. sg 16:34 Condition: good 16:34 Discharge instructions given to patient, Instructed on discharge instructions, follow up and referral plans. medication usage, Demonstrated understanding of instructions, follow-up care, Prescriptions given X 2. 16:41 Patient left the ED. sg Signatures: Nel Watkins RN RN Kane Dolan RN RN Kate Osullivan FNP-C FNP-Sharona Susie Márquez Kandis kj1 Corrections: (The following items were deleted from the chart) 14:34 14:32 Pulse 76bpm; Resp 16bpm; Pulse Ox 99%; Temp 98F; 79.38 kg; Height 5 ft. 2 in.; sv BMI: 32.0; sv 14:34 14:32 Pulse 76bpm; Resp 16bpm; Pulse Ox 99%; Temp 98F; 79.38 kg; Height 5 ft. 2 in.; sv BMI: 32.0; sv 16:23 15:59 Urine Culture+BA.LAB.BRZ drawn and sent. kj1 EDMS
[2019-04-29] MEDS ORDERED: FLUCONAZOLE 100 MG TAB ONE (16:31)
[2019-04-29 20:32] LABS: Urine Blood NEGATIVE (NEG); Urine Glucose 2+ (NEG); Urine Protein NEGATIVE (NEG); Urine pH 5.5 (5.0-7.0)
[2019-04-29 23:52] VITALS: BP 124/74; TEMP 98; O2SAT 99
== END 2019-04-29 16:41 | disposition home or self-care (01) ==
LOC: ER 14:25
DX: R53.81 Other malaise (principal); R53.83 Other fatigue; R20.2 Paresthesia of skin; E11.65 Type 2 diabetes mellitus with hyperglycemia; Z79.4 Long term (current) use of insulin; Y63.6 Underdosing and nonadministration of necessary drug, medicament or biological substance
CPT/HCPCS: 81003; 81015; 81025; 82947; 87086; 87088; 99284

== ENCOUNTER 2021-07-05 13:44 | Emergency (ER) | payer SELFPAY ==
--- NOTE | 2021-07-05 14:25 | ER ---
Nurse's Notes [facility] Name: Madisyn Cat Age: 51 yrs Sex: Female : 1970 Arrival Date: 07/05/2021 Time: 13:46 Bed 5 Private MD: Diagnosis: Paresthesia of skin Presentation: 07/05 13:53 Chief complaint: Patient states: R FOREARM AND HAND PAIN AND NUMBNESS. Coronavirus bp screen: At this time, the client does not indicate any symptoms associated with coronavirus-19. Ebola Screen: No symptoms or risks identified at this time. Initial Sepsis Screen: Does the patient meet any 2 criteria? No. Patient's initial sepsis screen is negative. Does the patient have a suspected source of infection? No. Patient's initial sepsis screen is negative. Risk Assessment: Do you want to hurt yourself or someone else? Patient reports no desire to harm self or others. Onset of symptoms was June 28, 2021. 13:53 Method Of Arrival: Ambulatory bp 13:53 Acuity: NIKKI 4 bp Historical: - Allergies: 13:55 No Known Allergies; bp - Home Meds: 13:55 metformin 1,000 mg Oral tr24 1 tab twice a day [Active]; Levemir 15 units subcutaneous bp soln daily [Active]; - PMHx: 13:55 Diabetes - IDDM; bp - PSHx: 13:55 Tonsillectomy; Ligation of fallopian tube; Cholecystectomy; bp - Immunization history:: Client reports having NOT received the Covid vaccine. - Social history:: Smoking status: Patient denies any tobacco usage or history of. Screenin:30 Abuse screen: Denies threats or abuse. Denies injuries from another. Nutritional jl7 screening: No deficits noted. Tuberculosis screening: No symptoms or risk factors identified. Fall Risk None identified. Assessment: 14:30 General: Appears in no apparent distress. uncomfortable, Behavior is calm, cooperative, jl7 appropriate for age. Pain: Complains of pain in right arm. Neuro: Level of Consciousness is awake, alert, obeys commands, Oriented to person, place, time, situation, Reports paresthesias in right arm. Cardiovascular: Patient's skin is warm and dry. Respiratory: Airway is patent Respiratory effort is even, unlabored, Respiratory pattern is regular, symmetrical. Derm: Skin is pink, warm \T\ dry. Vital Signs: 13:53 BP 145 / 76; Pulse 82; Resp 17; Temp 97.5; Pulse Ox 98% ; Weight 77.11 kg; Height 5 ft. bp 1 in. (154.94 cm); 14:47 BP 117 / 70; Pulse 72; Resp 15; Pulse Ox 98% ; jl7 13:53 Body Mass Index 32.12 (77.11 kg, 154.94 cm) bp ED Course: 13:46 Patient arrived in ED. ds1 13:51 Shaq Esquivel DO is Attending Physician. ms3 13:54 Triage completed. bp 13:55 Arm band placed on. bp 14:06 Yehuda Stoner, LYN is Primary Nurse. jl7 14:24 Iker Kee MD is Referral Physician. ms3 14:24 Referral Physician role handed off by Iker Kee MD ms3 14:24 Angel Irizarry MD is Referral Physician. ms3 14:30 Patient has correct armband on for positive identification. Bed in low position. Call jl7 light in reach. Side rails up X 1. 14:50 No provider procedures requiring assistance completed. Patient did not have IV access jl7 during this emergency room visit. Administered Medications: No medications were administered Outcome: 14:25 Discharge ordered by . ms3 14:50 Discharged to home ambulatory. jl7 14:50 Condition: stable 14:50 Discharge instructions given to patient, family, Instructed on discharge instructions, follow up and referral plans. Demonstrated understanding of instructions, follow-up care. 14:50 Patient left the ED. jl7 Signatures: Shasta Fisher ds1 Yehuda Stoner, LYN NICHOLSON jl7 Harjeet Jang RN RN bp Shaq Esquivel DO DO ms3
--- NOTE | 2021-07-05 14:26 | EDPHYS ---
Physician Documentation [facility] [place] [place] Name: Madisyn Cat Age: 51 yrs Sex: Female : 1970 Arrival Date: 07/05/2021 Time: 13:46 Bed 5 Private MD: ED Physician Shaq Esquivel HPI: 07/05 14:21 This 51 yrs old Female presents to ER via Ambulatory with complaints of Arm Pain, ms3 Numbness. 14:21 The patient or guardian complains of pain, that is acute. The complaints affect the ms3 right arm. Context:. Onset: The symptoms/episode began/occurred 1 month(s) ago. Modifying factors: The symptoms are alleviated by nothing. the symptoms are aggravated by nothing. Associated signs and symptoms: The patient has no apparent associated signs or symptoms. 51 yo female with pmh of diabetes presents c/o paresthesias in her right arm that began 1 month prior to arrival. Patient states her pain is a 10/10. Patient denies alleviating or inciting factors. Patient states ibuprofen gets patient relief for 10 min. . Historical: - Allergies: 13:55 No Known Allergies; bp - Home Meds: 13:55 metformin 1,000 mg Oral tr24 1 tab twice a day [Active]; Levemir 15 units subcutaneous bp soln daily [Active]; - PMHx: 13:55 Diabetes - IDDM; bp - PSHx: 13:55 Tonsillectomy; Ligation of fallopian tube; Cholecystectomy; bp - Immunization history:: Client reports having NOT received the Covid vaccine. - Social history:: Smoking status: Patient denies any tobacco usage or history of. ROS: 14:21 Constitutional: Negative for fever, and chills. Eyes: Negative for injury, pain, ms3 redness, and discharge, Cardiovascular: Negative for chest pain, and palpitations. Respiratory: Negative for shortness of breath, cough, wheezing, and pleuritic chest pain, Abdomen/GI: Negative for abdominal pain, nausea, vomiting, diarrhea, and constipation, Back: Negative for injury and pain, Skin: Negative for injury, rash, and discoloration. 14:21 MS/extremity: Positive for pain. 14:21 All other systems are negative. Exam: 14:21 Constitutional: This is a well developed, well nourished patient who is awake, alert, ms3 and in no acute distress. Head/Face: Normocephalic, atraumatic. Eyes: Pupils equal round and reactive to light, extra-ocular motions intact. Lids and lashes normal. Conjunctiva and sclera are non-icteric and not injected. Periorbital areas with no swelling, redness, or edema. Chest/axilla: Normal chest wall appearance and motion. Nontender with no deformity. Cardiovascular: Regular rate and rhythm with a normal S1 and S2. No gallops, murmurs, or rubs. Normal PMI, no JVD. No pulse deficits. Respiratory: Lungs have equal breath sounds bilaterally, clear to auscultation and percussion. No rales, rhonchi or wheezes noted. No increased work of breathing, no retractions or nasal flaring. Abdomen/GI: Soft, non-tender, with normal bowel sounds. No distension or tympany. No guarding or rebound. No evidence of tenderness throughout. MS/ Extremity: Pulses equal, no cyanosis. Neurovascular intact. Full, normal range of motion. Neuro: Awake and alert, GCS 15, oriented to person, place, time, and situation. Cranial nerves II-XII grossly intact. Motor strength 5/5 in all extremities. Sensory grossly intact. Cerebellar exam normal. Normal gait. Psych: Awake, alert, with orientation to person, place and time. Behavior, mood, and affect are within normal limits. Vital Signs: 13:53 BP 145 / 76; Pulse 82; Resp 17; Temp 97.5; Pulse Ox 98% ; Weight 77.11 kg; Height 5 ft. bp 1 in. (154.94 cm); 14:47 BP 117 / 70; Pulse 72; Resp 15; Pulse Ox 98% ; jl7 13:53 Body Mass Index 32.12 (77.11 kg, 154.94 cm) bp MDM: 14:21 Patient medically screened. ms3 14:21 Differential diagnosis: Diabetic peripheral neuropathy vs cubital tunnel syndrome vs ms3 msk pain. 14:25 Data reviewed: vital signs, nurses notes. Counseling: I had a detailed discussion with ms3 the patient and/or guardian regarding: the historical points, exam findings, and any diagnostic results supporting the discharge/admit diagnosis, the need for outpatient follow up, to return to the emergency department if symptoms worsen or persist or if there are any questions or concerns that arise at home. ED course: Discussed pe findings with patient. Patient to follow up with Dr Irizarry as discussed. Patient understands/ agrees with plan Return precautions discussed to include worsening symptoms, or any other concerns Patient is a/o x4, nad, non-toxic, ambulatory in ED, speaking full sentences.. Administered Medications: No medications were administered Disposition Summary: 07/05/21 14:25 Discharge Ordered Location: Home ms3 Condition: Stable ms3 Diagnosis - Paresthesia of skin ms3 Followup: ms3 - With: Iker Kee MD - When: 2 - 3 days - Reason: Recheck today's complaints Followup: ms3 - With: Angel Irizarry MD - When: 2 - 3 days - Reason: Recheck today's complaints Discharge Instructions: - Discharge Summary Sheet ms3 - Paresthesia ms3 Forms: - Medication Reconciliation Form ms3 - Thank You Letter ms3 - Antibiotic Education ms3 - Prescription Opioid Use ms3 Signatures: Harjeet Jang, LYN RN Shaq Cooper DO DO ms3
[2021-07-05 15:11] VITALS: TEMP 97.5; O2SAT 98
[2021-07-05 15:13] VITALS: BP 117/70
== END 2021-07-05 14:50 | disposition home or self-care (01) ==
LOC: ER 13:44
DX: R20.2 Paresthesia of skin (principal); E11.9 Type 2 diabetes mellitus without complications; Z79.4 Long term (current) use of insulin
CPT/HCPCS: 99281

== ENCOUNTER 2022-02-28 12:07 | Emergency (ER) | payer SELFPAY ==
[2022-02-28] MEDS ORDERED: HYDROCODONE/APAP 7.5/325 MG TAB ONE (12:43)
--- NOTE | 2022-02-28 13:06 | RAD REPORT ---
EXAM DESCRIPTION: CT - Pelvis Wo Cont - 02/28/2022 12:41 pm CLINICAL HISTORY: fall, hip/pelvic pain COMPARISON: Abdomen Pelvis Wo Contrast dated 08/24/2017 FINDINGS: Globular enlarged uterus. This is a chronic finding. Nondisplaced predominantly transverse ly oriented fracture at S4-S5. Both hips are located. Small fat containing right inguinal hernia. Nor mal appendix. IMPRESSION: Nondisplaced fracture at S4-S5.
--- NOTE | 2022-02-28 13:14 | ER ---
Nurse's Notes [facility] Name: Madisyn Cat Age: 51 yrs Sex: Female : 1970 Arrival Date: 02/28/2022 Time: 12:11 Bed 11 Private MD: Diagnosis: Nondisplaced fracture S4-S5 Presentation: 02/28 12:29 Chief complaint: Patient states: Last week I was sitting in my hammock - I bounced on ld1 it twice and the hammock broke. Pt reports landing on tailbone. C/O pain to right hip/groin \T\ tailbone. Denies hitting head, not on blood thinners. Coronavirus screen: At this time, the client does not indicate any symptoms associated with coronavirus-19. Ebola Screen: No symptoms or risks identified at this time. Initial Sepsis Screen: Does the patient meet any 2 criteria? No. Patient's initial sepsis screen is negative. Does the patient have a suspected source of infection? No. Patient's initial sepsis screen is negative. Risk Assessment: Do you want to hurt yourself or someone else? Patient reports no desire to harm self or others. Onset of symptoms was February 28, 2022 at 12:30. 12:29 Method Of Arrival: Ambulatory ld1 12:29 Acuity: NIKKI 4 ld1 Triage Assessment: 12:30 General: Appears in no apparent distress. comfortable, Behavior is calm, cooperative, ld1 appropriate for age. Pain: Complains of pain in buttocks, right femoral area and right hip Pain does not radiate. Pain currently is 7 out of 10 on a pain scale. Quality of pain is described as throbbing, Pain began suddenly. EENT: No signs and/or symptoms were reported regarding the EENT system. Neuro: Level of Consciousness is awake, alert, obeys commands, Oriented to person, place, time, situation. Cardiovascular: Capillary refill < 3 seconds Patient's skin is warm and dry. Respiratory: Airway is patent Respiratory effort is even, unlabored. GI: Abdomen is flat, non-distended. : No signs and/or symptoms were reported regarding the genitourinary system. Derm: No signs and/or symptoms reported regarding the dermatologic system. Musculoskeletal: No signs and/or symptoms reported regarding the musculoskeletal system. 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 - Social history:: Smoking status: Patient denies any tobacco usage or history of. Patient/guardian denies using alcohol. Vital Signs: 12:29 BP 118 / 81; Pulse 72; Resp 18; Temp 98.7(TE); Pulse Ox 100% on R/A; Weight 76.66 kg; ld1 Height 5 ft. 1 in. (154.94 cm); Pain 7/10; 12:29 Body Mass Index 31.93 (76.66 kg, 154.94 cm) ld1 ED Course: 12:11 Patient arrived in ED. mr 12:28 Maite Bautista FNP-C is PHCP. kb 12:28 Jeronimo Carter MD is Attending Physician. kb 12:30 Triage completed. ld1 12:30 Arm band placed on right wrist. ld1 12:42 CT Pelvis wo Cont In Process Unspecified. EDMS 12:43 Renetta Alonso, RN is Primary Nurse. iw Administered Medications: 13:15 Drug: [place] (HYDROcodone-acetaminophen) (7.5 mg-325 mg) 1 tabs Route: PO; iw Outcome: 13:13 Discharge ordered by MD. kb 13:33 Patient left the ED. iw Signatures: Dispatcher [employer] EDMS Maite Bautista FNP-C FNP-Peyton ToddaSusie mr Renetta Alonso, RN RN iw Darleen Waters RN RN ld1
--- NOTE | 2022-02-28 13:14 | EDPHYS ---
Physician Documentation [facility] Name: Madisyn Cat Age: 51 yrs Sex: Female : 1970 Arrival Date: 02/28/2022 Time: 12:11 Bed 11 Private MD: ED Physician Jeronimo Carter HPI: 02/28 13:09 This 51 yrs old Female presents to ER via Ambulatory with complaints of Fall Injury. kb 13:09 Details of fall: The patient fell from seated position, hammock. The patient has not kb recently seen a physician. 13:09 Onset: The symptoms/episode began/occurred last week. Associated injuries: The patient kb sustained injury to the low back, pain, pain with movement, right hip, painful injury. Severity of symptoms: At their worst the symptoms were moderate, in the emergency department the symptoms are unchanged. The patient has not experienced similar symptoms in the past. 13:09 Pt reports she fell out of a hammock last week and landed on her buttocks. Reports pain kb was to tailbone area, but has moved to right hip/groin. 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 - Social history:: Smoking status: Patient denies any tobacco usage or history of. Patient/guardian denies using alcohol. ROS: 13:09 Constitutional: Negative for fever, chills, and weight loss. kb 13:09 Back: Positive for pain at rest, pain with movement. 13:09 All other systems are negative. Exam: 13:08 Constitutional: This is a well developed, well nourished patient who is awake, alert, kb and in no acute distress. Head/Face: Normocephalic, atraumatic. ENT: Moist Mucous membranes Cardiovascular: Regular rate and rhythm with a normal S1 and S2. No gallops, murmurs, or rubs. No pulse deficits. Respiratory: Respirations even and unlabored. No increased work of breathing. Talking in full sentences Abdomen/GI: Soft, non-tender. No distention Skin: Warm, dry with normal turgor. Normal color. Neuro: Awake and alert, GCS 15, oriented to person, place, time, and situation. Moves all extremities. Normal gait. Psych: Awake, alert, with orientation to person, place and time. Behavior, mood, and affect are within normal limits. 13:08 Back: pain, that is moderate, of the sacrum and right low back. 13:08 Musculoskeletal/extremity: Extremities: grossly normal except: noted in the right hip: pain, ROM: intact in all extremities, Circulation is intact in all extremities. Sensation intact. Weight bearing: able to fully bear weight. Vital Signs: 12:29 BP 118 / 81; Pulse 72; Resp 18; Temp 98.7(TE); Pulse Ox 100% on R/A; Weight 76.66 kg; ld1 Height 5 ft. 1 in. (154.94 cm); Pain 7/10; 12:29 Body Mass Index 31.93 (76.66 kg, 154.94 cm) ld1 MDM: 12:28 Patient medically screened. kb 13:08 Data reviewed: vital signs, nurses notes. Data interpreted: Pulse oximetry: on room air kb is 100 %. Interpretation: normal. Counseling: I had a detailed discussion with the patient and/or guardian regarding: the historical points, exam findings, and any diagnostic results supporting the discharge/admit diagnosis, radiology results, the need for outpatient follow up, a family practitioner, to return to the emergency department if symptoms worsen or persist or if there are any questions or concerns that arise at home. 02/28 12:31 Order name: CT Pelvis wo Cont; Complete Time: 13:07 kb Administered Medications: 13:15 Drug: [place] (HYDROcodone-acetaminophen) (7.5 mg-325 mg) 1 tabs Route: PO; iw Disposition: 16:56 Co-signature as Attending Physician, Jeronimo Carter MD I agree with the assessment and rt plan of care. Disposition Summary: 02/28/22 13:13 Discharge Ordered Location: Home kb Condition: Stable kb Diagnosis - Nondisplaced fracture S4-S5 kb Followup: kb - With: Emergency Department - When: As needed - Reason: Worsening of condition Followup: kb - With: Private Physician - When: 2 - 3 days - Reason: Recheck today's complaints, Continuance of care, Re-evaluation by your physician Discharge Instructions: - Discharge Summary Sheet kb - Acute Back Pain, Adult kb Forms: - Medication Reconciliation Form kb - Thank You Letter kb - Antibiotic Education kb - Prescription Opioid Use kb Prescriptions: - Cyclobenzaprine 10 mg Oral Tablet - take 1 tablet by ORAL route every 8 hours As needed; 15 tablet; Refills: 0, kb Product Selection Permitted - Diclofenac Sodium 75 mg Oral tablet,delayed release (DR/EC) - take 1 tablet by ORAL route 2 times per day As needed; 30 tablet; Refills: 0, kb Product Selection Permitted Signatures: Dispatcher [employer] EDMS Maite Bautista, DERREK-C MANUFACTURING COORDINATOR-Renetta Thao RN RN iw Darleen Waters RN RN ld1 Jeronimo Carter MD MD rt Corrections: (The following items were deleted from the chart) 13:09 13:09 Details of fall: The patient fell from an upright position, kb
[2022-02-28 13:38] VITALS: BP 118/81; TEMP 98.7; O2SAT 100
== END 2022-02-28 13:33 | disposition home or self-care (01) ==
LOC: ER 12:07
DX: S32.17XA Type 4 fracture of sacrum, initial encounter for closed fracture (principal); S32.19XA Other fracture of sacrum, initial encounter for closed fracture; E11.9 Type 2 diabetes mellitus without complications
CPT/HCPCS: 72192; 99283

== ENCOUNTER 2023-01-30 19:27 | Emergency (ER) | payer SELFPAY ==
--- NOTE | 2023-01-30 21:41 | EDPHYS ---
Physician Documentation [facility] Name: Madisyn Cat Age: 52 yrs Sex: Female : 1970 Arrival Date: 01/30/2023 Time: 19:27 Bed IW1 Private MD: ED Physician Sandro Justice HPI: 01/30 21:54 This 52 yrs old Female presents to ER via Ambulatory with complaints of Foot Injury. kb 21:54 Patient is a 52-year-old female with a history of diabetes who presents for pain to kb both feet. States the glass door of her oven fell on top of both feet last week. Reports swelling, bruising and pain that is persisted.. Historical: - Allergies: 19:38 No Known Allergies; cm10 - PMHx: 19:38 Diabetes - IDDM; cm10 - PSHx: 19:38 Cholecystectomy; Ligation of fallopian tube; Tonsillectomy; cm10 - Immunization history:: Adult Immunizations unknown. - Social history:: Smoking status: Patient denies any tobacco usage or history of. ROS: 21:53 Constitutional: Negative for fever, chills, and weight loss, kb 21:53 MS/extremity: Positive for contusion, of the dorsum of right foot and dorsum of left foot, 21:53 All other systems are negative, Exam: 21:53 Constitutional: This is a well developed, well nourished patient who is awake, alert, kb and in no acute distress. Head/Face: Normocephalic, atraumatic. ENT: Moist Mucous membranes Cardiovascular: Regular rate Respiratory: Respirations even and unlabored. No increased work of breathing. Talking in full sentences Skin: Warm, dry with normal turgor. Normal color. Neuro: Awake and alert, GCS 15, oriented to person, place, time, and situation. Moves all extremities. Normal gait. 21:53 Musculoskeletal/extremity: Extremities: grossly normal except: noted in the dorsum of right foot: contusion, pain, swelling, tenderness, noted in the dorsum of left foot: contusion, ecchymosis, pain, tenderness, ROM: intact in all extremities, Circulation is intact in all extremities. Sensation intact. Weight bearing: able to fully bear weight, Vital Signs: 19:36 BP 121 / 77; Pulse 75; Resp 16 S; Temp 98.2(TE); Pulse Ox 100% on R/A; Weight 73.48 kg cm10 (R); Height 5 ft. 1 in. (R); Pain 08/16; 19:36 Body Mass Index 30.61 (73.48 kg, 154.94 cm) cm10 19:36 Pain Scale: Adult cm10 MDM: 19:34 Patient medically screened. kb 21:41 Differential diagnosis: dislocation, closed fracture, contusion. Data reviewed: vital kb signs, nurses notes. Independent interpretation of the following test(s) in the Emergency Department X-Ray: My interpretation is x-rays of both feet interpreted by me. no acute fracture. Counseling: I had a detailed discussion with the patient and/or guardian regarding the historical points, exam findings, and any diagnostic results supporting the discharge/admit diagnosis, radiology results, the need for outpatient follow up, a family practitioner, to return to the emergency department if symptoms worsen or persist or if there are any questions or concerns that arise at home. 01/30 19:38 Order name: Foot Left 3 View XRAY kb 01/30 19:38 Order name: Foot Right 3 View XRAY kb Administered Medications: No medications were administered Disposition Summary: 01/30/23 21:41 Discharge Ordered Notes: Location: Home kb Condition: Stable kb Diagnosis - Contusion of left foot kb - Contusion of right foot kb Followup: kb - With: Emergency Department - When: As needed - Reason: Worsening of condition Followup: kb - With: Private Physician - When: 2 - 3 days - Reason: Recheck today's complaints, Continuance of care, Re-evaluation by your physician Discharge Instructions: - Discharge Summary Sheet kb - Foot Contusion, [id number] kb Forms: - Medication Reconciliation Form kb - Thank You Letter kb - Antibiotic Education kb - Prescription Opioid Use kb - Patient Portal Instructions kb - Leadership Thank You Letter kb Signatures: Dispatcher [employer] Maite Fox, DERREK-Onelia ANGLIN-Pooja Peterson, RN RN cm10
--- NOTE | 2023-01-30 21:41 | ER ---
Nurse's Notes [facility] Name: Madisyn Cat Age: 52 yrs Sex: Female : 1970 Arrival Date: 01/30/2023 Time: 19:27 Bed IW1 Private MD: Diagnosis: Contusion of left foot;Contusion of right foot Presentation: 01/30 19:36 Chief complaint: Patient states: right foot pain onset 1 week ago. Pt states that last cm10 week the glass of her stove came off and hit her in the feet. Pt states that she has pain in both feet but the right foot is worse. Pt ambulatory with steady gait. Coronavirus screen: Vaccine status: Patient reports being unvaccinated. Client denies travel out of the [place] in the last 14 days. Ebola Screen: Patient denies travel to an Ebola-affected area in the 21 days before illness onset. No symptoms or risks identified at this time. Initial Sepsis Screen: Does the patient meet any 2 criteria? No. Patient's initial sepsis screen is negative. Does the patient have a suspected source of infection? No. Patient's initial sepsis screen is negative. Risk Assessment: Do you want to hurt yourself or someone else? Patient reports no desire to harm self or others. Onset of symptoms was January 30, 2023. 19:36 Method Of Arrival: Ambulatory cm10 19:36 Acuity: NIKKI 4 cm10 Triage Assessment: 19:38 General: Appears in no apparent distress. comfortable, Behavior is calm, cooperative. cm10 Neuro: No deficits noted. Level of Consciousness is awake, alert, obeys commands, Oriented to person, place, time, situation. 21:41 Pain: Complains of pain in right foot and left foot Pain does not radiate. Pain cm10 currently is 5 out of 10 on a pain scale. Cardiovascular: No deficits noted. Patient's skin is warm and dry. Respiratory: No deficits noted. Airway is patent Respiratory effort is even, unlabored, Respiratory pattern is regular, symmetrical. GI: No deficits noted. No signs and/or symptoms were reported involving the gastrointestinal system. : No deficits noted. No signs and/or symptoms were reported regarding the genitourinary system. Derm: No deficits noted. No signs and/or symptoms reported regarding the dermatologic system. Skin is intact, Skin is pink, warm \T\ dry. Musculoskeletal: No deficits noted. Reports pain in right foot and left foot. Injury Description: glass to patient's stove fell on her feet. Historical: - Allergies: 19:38 No Known Allergies; cm10 - PMHx: 19:38 Diabetes - IDDM; cm10 - PSHx: 19:38 Cholecystectomy; Ligation of fallopian tube; Tonsillectomy; cm10 - Immunization history:: Adult Immunizations unknown. - Social history:: Smoking status: Patient denies any tobacco usage or history of. Screenin:42 [facility] ED Fall Risk Assessment (Adult) History of falling in the last 3 months, cm10 including since admission No falls in past 3 months (0 pts) Confusion or Disorientation No (0 pts) Intoxicated or Sedated No (0 pts) Impaired Gait No (0 pts) Mobility Assist Device Used No (0 pt) Altered Elimination No (0 pt) Score/Fall Risk Level 0 - 2 = Low Risk Oriented to surroundings, Maintained a safe environment, Hourly rounding (assess needs \T\ fall precautionary measures) done. Abuse screen: Denies threats or abuse. Denies injuries from another. Nutritional screening: No deficits noted. Tuberculosis screening: No symptoms or risk factors identified. Assessment: 21:30 Reassessment: No changes from previously documented assessment. Patient and/or family mb9 updated on plan of care and expected duration. Pain level reassessed. Patient is alert, oriented x 3, equal unlabored respirations, skin warm/dry/pink. Vital Signs: 19:36 BP 121 / 77; Pulse 75; Resp 16 S; Temp 98.2(TE); Pulse Ox 100% on R/A; Weight 73.48 kg cm10 (R); Height 5 ft. 1 in. (R); Pain 5/10; 19:36 Body Mass Index 30.61 (73.48 kg, 154.94 cm) cm10 19:36 Pain Scale: Adult cm10 ED Course: 19:31 Patient arrived in ED. jj6 19:34 Maite Bautista [facility]NP-C [facility]. kb 19:34 Sandro Justice MD is Attending Physician. kb 19:38 Triage completed. cm10 19:38 Arm band placed on Patient placed in waiting room. cm10 20:37 Foot Left 3 View XRAY In Process Unspecified. EDMS 20:37 Foot Right 3 View XRAY In Process Unspecified. EDMS 21:42 Patient has correct armband on for positive identification. Provided Education on: ER cm10 process and procedures. . 21:42 No provider procedures requiring assistance completed. Patient did not have IV access cm10 during this emergency room visit. Administered Medications: No medications were administered Medication: 21:42 VIS not applicable for this client. cm10 Outcome: 21:41 Discharge ordered by MD. henning 21:42 Discharged to home ambulatory, cm10 21:42 Condition: good 21:42 Discharge instructions given to patient, Instructed on discharge instructions, follow up and referral plans. Demonstrated understanding of instructions, follow-up care, 21:45 Patient left the ED. mb9 Signatures: Dispatcher [employer] EDMS Maite Bautista, GRID CASTERKuldeep GRID CASTER-Nancy Godfrey Mary Beth, RN RN mb9 Pooja Ceballos RN RN cm10
--- NOTE | 2023-01-30 21:51 | RAD REPORT ---
EXAM DESCRIPTION: RAD - Foot Right 3 View - 01/30/2023 8:36 pm CLINICAL HISTORY: PAIN COMPARISON: Foot Left 3 View dated 01/30/2023 TECHNIQUE: Right foot, 3 views. FINDINGS: No fracture, dislocation or periosteal reaction. Moderate calcaneal spur. No air or foreign body in the soft tissues. IMPRESSION: No acute osseous abnormality. Moderate calcaneal spur. .
--- NOTE | 2023-01-30 21:51 | RAD REPORT ---
EXAM DESCRIPTION: RAD - Foot Left 3 View - 01/30/2023 8:36 pm CLINICAL HISTORY: PAIN COMPARISON: No comparisons TECHNIQUE: Left foot, 3 views. FINDINGS: No fracture, dislocation or periosteal reaction. Moderate calcaneal spur. No air or foreign body in the soft tissues. IMPRESSION: No acute osseous abnormality. Moderate calcaneal spur.
[2023-02-01 15:21] VITALS: BP 121/77; TEMP 98.2; O2SAT 100
== END 2023-01-30 21:45 | disposition home or self-care (01) ==
LOC: ER 19:27
DX: S90.32XA Contusion of left foot, initial encounter (principal); S90.31XA Contusion of right foot, initial encounter
CPT/HCPCS: 99282

== ENCOUNTER 2023-10-01 18:46 | Emergency (ER) | payer OTHER ==
--- NOTE | 2023-10-01 19:45 | ER ---
Nurse's Notes [facility] Name: Madisyn Cat Age: 53 yrs Sex: Female : 1970 Arrival Date: 10/01/2023 Time: 18:46 Bed IW4 Private MD: Diagnosis: Presentation: 09/30 19:07 Chief complaint: Patient states: I have rash on trunk and arms for about two weeks. bm8 Possible bed bugs. Coronavirus screen: At this time, the client does not indicate any symptoms associated with coronavirus-19. Ebola Screen: Patient negative for fever greater than or equal to 101.5 degrees Fahrenheit, and additional compatible Ebola Virus Disease symptoms Patient denies exposure to infectious person. Patient denies travel to an Ebola-affected area in the 21 days before illness onset. No symptoms or risks identified at this time. Initial Sepsis Screen: Does the patient meet any 2 criteria? No. Patient's initial sepsis screen is negative. Does the patient have a suspected source of infection? No. Patient's initial sepsis screen is negative. Risk Assessment: Do you want to hurt yourself or someone else? Patient reports no desire to harm self or others. Onset of symptoms was September 23, 2023. 19:07 Method Of Arrival: Ambulatory bm8 19:07 Acuity: NIKKI 5 bm8 Triage Assessment: 19:09 General: Appears in no apparent distress. comfortable, Behavior is calm, cooperative. bm8 Pain: Denies pain. EENT: No deficits noted. No signs and/or symptoms were reported regarding the EENT system. Neuro: No deficits noted. Level of Consciousness is awake, alert, obeys commands, Oriented to person, place, time, situation. Cardiovascular: Denies chest pain, Capillary refill < 3 seconds Patient's skin is warm and dry. Respiratory: No deficits noted. Airway is patent Trachea midline Respiratory effort is even, unlabored, Respiratory pattern is regular, symmetrical. Derm: Rash noted that is papular. 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 - Infectious Disease History:: Denies. - Social history:: Smoking status: Patient denies any tobacco usage or history of. Vital Signs: 19:07 BP 149 / 81; Pulse 84; Resp 18; Temp 97.8; Pulse Ox 98% ; Weight 79.38 kg; Height 5 ft. bm8 1 in. ; Pain 04/18; 19:07 Body Mass Index 33.07 (79.38 kg, 154.94 cm) bm8 19:07 Pain Scale: Adult bm8 ED Course: 18:47 Patient arrived in ED. rg4 19:06 Travis De Anda PA is PHCP. cp 19:06 Benjamin Schwab MD is Attending Physician. cp 19:09 Triage completed. bm8 19:09 Arm band placed on right wrist. bm8 Administered Medications: No medications were administered Outcome: 19:48 Patient left the ED. lg3 Signatures: Travis De Anda PA PA cp Garcia, Rubi rg4 Anika Martinez RN RN lg3 Gildardo Dowd, RN RN bm8
[2023-10-02 02:20] VITALS: BP 149/81; TEMP 97.8; O2SAT 98
== END 2023-10-01 19:48 | disposition left against medical advice (07) ==
LOC: ER 18:46
DX: Z02.9 Encounter for administrative examinations, unspecified (principal)

== ENCOUNTER 2024-03-15 17:06 | Emergency (ER) | payer OTHER ==
--- NOTE | 2024-03-15 19:06 | RAD REPORT ---
EXAM: Chest Pa And Lat (2 Views) HISTORY: Congestion;Cough COMPARISON: 03/10/2015 FINDINGS: LUNGS/PLEURA: The lungs are clear. No pleural effusions or pneumothorax. No pulmonary edema. MEDIASTINUM: The mediastinal silhouette is within normal limits. CARDIAC: The cardiac silhouette is within normal limits. UPPER ABDOMEN: No significant abnormality. BONES: No acute fracture. LINES/TUBES/OTHER: N/A IMPRESSION: No evidence of acute cardiopulmonary disease.
--- NOTE | 2024-03-15 19:27 | EDPHYS ---
Physician Documentation [facility] Name: Madisyn Cat Age: 53 yrs Sex: Female : 1970 Arrival Date: 03/15/2024 Time: 17:06 Bed IW1 Private MD: ED Physician Benjamin Schwab HPI: 03/15 18:17 This 53 yrs old Female presents to ER via Ambulatory with complaints of Cough. dr5 18:17 The patient or guardian reports cough, that is intermittent. Onset: The dr5 symptoms/episode began/occurred last week. Pt is a 53 year old female with hx of DM coming in with cough that's been going on for over a week. Pt reports her granddaughter was diagnosed with influenza last week. Pt reports subjective fever throughout the week. Pt has been taking multiple over the counter medications with minimal relief.. Historical: - Allergies: 17:49 No Known Allergies; kc6 - PMHx: 17:49 Diabetes - IDDM; kc6 - PSHx: 17:49 Cholecystectomy; Ligation of fallopian tube; Tonsillectomy; kc6 - Immunization history:: Adult Immunizations up to date. - Infectious Disease History:: Denies. ROS: 18:17 Constitutional: as per hpi dr5 Exam: 18:17 Constitutional: This is a well developed, well nourished patient who is awake, alert, dr5 and in no acute distress. Head/Face: Normocephalic, atraumatic. Eyes: Pupils equal round and reactive to light, extra-ocular motions intact. Lids and lashes normal. Conjunctiva and sclera are non-icteric and not injected. Cornea within normal limits. Periorbital areas with no swelling, redness, or edema. Chest/axilla: Normal chest wall appearance and motion. Nontender with no deformity. No lesions are appreciated. Cardiovascular: Regular rate and rhythm with a normal S1 and S2. Normal PMI, no JVD. No pulse deficits. Respiratory: Lungs have equal breath sounds bilaterally, clear to auscultation. No rales, rhonchi or wheezes noted. No increased work of breathing, no retractions or nasal flaring. Back: No spinal tenderness. No costovertebral tenderness. Full range of motion. Skin: Warm, dry with normal turgor. Normal color with no rashes, no lesions, and no evidence of cellulitis. Neuro: Awake and alert, GCS 15, oriented to person, place, time, and situation. Cranial nerves II-XII grossly intact. Motor strength 5/5 in all extremities. Sensory grossly intact. Cerebellar exam normal. Normal gait. Vital Signs: 17:46 BP 142 / 108; Pulse 85; Resp 18 S; Temp 98.3(O); Pulse Ox 98% on R/A; Weight 79.38 kg kc6 (R); Height 5 ft. 2 in. (R); Pain 0/10; 17:46 Body Mass Index 32.01 (79.38 kg, 157.48 cm) kc6 17:46 Pain Scale: Adult kc6 MDM: 17:51 Medical Screening Exam initiated dr5 19:25 Differential Diagnosis: Obstructed Airway Bronchitis Influenza Upper Respiratory dr5 Infection Pneumonia. Data reviewed: vital signs, nurses notes, radiologic studies, plain films. Consideration of Admission/Observation Considered admission / escalation if patient had PNA with hypoxia requiring supplemental oxygen.. Care significantly affected by the following chronic conditions: Diabetes. Care significantly affected by the following Social Determinants of Health: Poor access to healthcare and/or lack of insurance, Poor access to transportation. Counseling: I had a detailed discussion with the patient and/or guardian regarding the historical points, exam findings, and any diagnostic results supporting the discharge/admit diagnosis, the presence of at least one elevated blood pressure reading (>120/80) during this emergency department visit, radiology results, the need for outpatient follow up, for definitive care, a family practitioner, to return to the emergency department if symptoms worsen or persist or if there are any questions or concerns that arise at home. ED course: Chest x-ray did not reveal pneumonia. Will give patient inhaler and short course of steroids with cough medication to help with symptoms. Recommended increased hydration. Recommend alternating Tylenol Motrin as needed for pain and fever.. 03/15 17:51 Order name: Chest Pa And Lat (2 Views) XRAY; Complete Time: 19:24 dr5 Administered Medications: No medications were administered Disposition Summary: 03/15/24 19:27 Discharge Ordered Notes: Location: Home dr5 Condition: Stable dr5 Diagnosis - Acute upper respiratory infection, unspecified dr5 Followup: dr5 - With: Emergency Department - When: As needed - Reason: Worsening of condition Followup: dr5 - With: Private Physician - When: 1 - 2 days - Reason: Recheck today's complaints, Continuance of care, Re-evaluation by your physician Discharge Instructions: - Discharge Summary Sheet dr5 - Upper Respiratory Infection, Adult, Enjn-[id number] dr5 Forms: - Medication Reconciliation Form dr5 - Patient Portal Instructions dr5 - Leadership Thank You Letter dr5 Prescriptions: - albuterol sulfate 0.63 mg/3 mL Inhalation Solution for Nebulization - nebulize 3 milliliter INHALATION route every 4 hours As needed as needed for dr5 bronchospasm; 1 application; Refills: 0, Product Selection Permitted - promethazine-DM 6.25-15 mg/5 mL Oral syrup - administer 5 milliliter ORAL route At bedtime As needed as needed for cough; dr5 120 milliliter; Refills: 0, Product Selection Permitted - Medrol (Walter) 4 mg Oral Tablets, Dose Pack - take 1 tablet ORAL route as directed - follow package instructions; 1 packet; dr5 Refills: 0, Product Selection Permitted Addendum: 03/17/2024 19:24 Co-signature as Attending Physician, Benjamin Schwab MD I reviewed the patient's care r n provided by the Advanced Practice Provider and agree with the diagnosis and treatment plan. Signatures: Dispatcher [employer] Benjamin Rios MD MD rn Campbell, Kaitlyn, RN RN [id number] Wisam Middleton, WAITER/WAITRESS INFORMAL-C WAITER/WAITRESS INFORMAL-Cdr5
--- NOTE | 2024-03-15 19:27 | ER ---
Nurse's Notes [facility] Name: Madisyn Cat Age: 53 yrs Sex: Female : 1970 Arrival Date: 03/15/2024 Time: 17:06 Bed IW1 Private MD: Diagnosis: Acute upper respiratory infection, unspecified Presentation: 03/15 17:46 Chief complaint: Patient states: "I think I caught the flu from my granddaughter. I kc6 have this cough I can't get ride of and its been going on since last Sunday.". Coronavirus screen: At this time, the client does not indicate any symptoms associated with coronavirus-19. Ebola Screen: No symptoms or risks identified at this time. Initial Sepsis Screen: Does the patient meet any 2 criteria? No. Patient's initial sepsis screen is negative. Does the patient have a suspected source of infection? No. Patient's initial sepsis screen is negative. Risk Assessment: Do you want to hurt yourself or someone else? Patient reports no desire to harm self or others. Onset of symptoms was March 15, 2024. 17:46 Method Of Arrival: Ambulatory [facility] 17:46 Acuity: NIKKI 4 kc6 Historical: - Allergies: 17:49 No Known Allergies; kc6 - PMHx: 17:49 Diabetes - IDDM; kc6 - PSHx: 17:49 Cholecystectomy; Ligation of fallopian tube; Tonsillectomy; kc6 - Immunization history:: Adult Immunizations up to date. - Infectious Disease History:: Denies. Screenin:46 [facility] ED Fall Risk Assessment (Adult) History of falling in the last 3 months, vc1 including since admission No falls in past 3 months (0 pts) Confusion or Disorientation No (0 pts) Intoxicated or Sedated No (0 pts) Impaired Gait No (0 pts) Mobility Assist Device Used No (0 pt) Altered Elimination No (0 pt) Score/Fall Risk Level 0 - 2 = Low Risk Oriented to surroundings, Maintained a safe environment, Educated pt \\T\\ family on fall prevention, incl call for assistance when getting out of bed. Abuse screen: Denies threats or abuse. Nutritional screening:. Nutritional screening: No deficits noted. Tuberculosis screening: No symptoms or risk factors identified. Vital Signs: 17:46 BP 142 / 108; Pulse 85; Resp 18 S; Temp 98.3(O); Pulse Ox 98% on R/A; Weight 79.38 kg kc6 (R); Height 5 ft. 2 in. (R); Pain 0/10; 17:46 Body Mass Index 32.01 (79.38 kg, 157.48 cm) kc6 17:46 Pain Scale: Adult [facility] ED Course: 17:11 Patient arrived in ED. ra3 17:17 Wisam Middleton FNP-C [facility]5 17:17 Benjamin Schwab MD is Attending Physician. dr5 17:48 Triage completed. kc6 17:49 Arm band placed on. kc6 18:56 Chest Pa And Lat (2 Views) XRAY In Process Unspecified. EDMS 19:48 No provider procedures requiring assistance completed. Patient did not have IV access vc1 during this emergency room visit. Administered Medications: No medications were administered Medication: 19:47 VIS not applicable for this client. vc1 Outcome: 19:27 Discharge ordered by MD. dr5 19:48 Discharged to home ambulatory, vc1 19:48 Condition: good 19:48 Discharge instructions given to patient, Instructed on discharge instructions, follow up and referral plans. medication usage, Demonstrated understanding of instructions, follow-up care, medications, Prescriptions given X 3, 19:56 Patient left the ED. vc1 Signatures: Dispatcher [employer] EDMS Regina Sheramn RN RN vc1 Naomi Jimenez RN RN Kaur Beaver ra3 Wisam Middleton FNP-C RECREATION FACILITIES SUPERVISOR-Cdr5
[2024-03-15 23:44] VITALS: BP 142/108; TEMP 98.3; O2SAT 98
== END 2024-03-15 19:56 | disposition home or self-care (01) ==
LOC: ER 17:06
DX: J06.9 Acute upper respiratory infection, unspecified (principal)
CPT/HCPCS: 71046; 99283